=== PATIENT | female | born 1945 | race Caucasian/White ===

== ENCOUNTER → 2017-03-19 | Outpatient (CLI) | payer MEDICARE ==
--- NOTE | 2017-03-19 15:32 | US ---
EXAMINATION TYPE: US kidneys/renal and bladder DATE OF EXAM: 03/19/2017 COMPARISON: NONE CLINICAL HISTORY: 585.3 CKD STAGE 3. Hx of IBS, and diabetes EXAM MEASUREMENTS: Right Kidney: 10.2 x 5.8 x 4.5 cm Left Kidney: 10.2 x 5.3 x 4.9 cm Post Void Residual Volume: 5.6 mL Right Kidney: mild hydronephrosis Left Kidney: No hydronephrosis or masses seen Bladder: wnl Bilateral Jets seen: Yes Normal Post Void Residual: Yes There is an extrarenal pelvis on the right. IMPRESSION: NORMAL RENAL ULTRASOUND.
== END | disposition home or self-care (01) ==
LOC: RADUSWWP 14:49
PROVIDERS: ATTEND Internal Medicine
DX: N18.3 Chronic kidney disease, stage 3 (moderate) (principal)
CPT/HCPCS: 76770

== ENCOUNTER 2017-12-11 01:57 | Emergency (ER) | payer MEDICARE ==
[2017-12-11 02:04] VITALS: RESP 18
[2017-12-11] MEDS ORDERED: SODIUM CHLORIDE 0.9% 500 ML IV STA (02:53)
--- NOTE | 2017-12-11 03:05 | ED ---
Fall HPI - General Chief Complaint: Fall Stated Complaint: FALL Time Seen by Provider: 12/11/17 02:46 Source: patient, RN notes reviewed Mode of arrival: wheelchair Limitations: no limitations - History of Present Illness Initial Comments: 72-year-old female presents emergency Department chief complaint of a fall. She states she's had 2 or 3 episodes today where she does feel like she loses her balance and she will follow her. He also complains her ring years of been ringing. She states that she just laid down or sleep states that she had a get up to go to the bathroom states that she was in the hallway and subtly just collapsed. She is not exactly sure what happened. She felt that she fell forward though she has an area of swelling on her occipital region she complains of mild headache she does take aspirin. She denies any neck pain, back pain just went of right rib and chest discomfort. She also feels some tightness in her chest. Patient also states she has right knee pain. She believes she fell on her right knee and she's had a history of patellar fracture. Patient denies being sick recently denies any nausea vomiting. She states that she does have use a cane because occasionally she uses loses her balance but this is felt different. - Related Data Home Medications Medication Instructions Recorded Confirmed Aspirin 325 mg PO DAILY 10/21/15 02/20/16 Atenolol [Tenormin] 25 mg PO DAILY 10/21/15 02/20/16 Atorvastatin Calcium [Lipitor] 20 mg PO DAILY 10/21/15 02/20/16 Benazepril HCl 10 mg PO DAILY 10/21/15 02/20/16 Biotin 7,500 mcg PO DAILY 10/21/15 02/20/16 Furosemide [Lasix] 20 mg PO DAILY 10/21/15 02/20/16 Liraglutide [Victoza 3-Kenji] 1.8 mg SQ DAILY 10/21/15 02/20/16 Zinc 50 mg PO DAILY 10/21/15 02/20/16 metFORMIN HCL [Glucophage Xr] 500 mg PO BID 10/21/15 02/20/16 Ascorbic Acid [Vitamin C] 600 mg PO DAILY 02/18/16 02/20/16 Biotin 7,500 mcg PO 02/18/16 02/20/16 Cholecalciferol [Vitamin D3] 400 unit PO DAILY@1200 02/18/16 02/20/16 Multivitamins, Thera [Multivitamin] 1 tab PO DAILY 02/18/16 02/20/16 Spironolactone [Aldactone] 25 mg PO DAILY 02/18/16 02/20/16 Tolterodine Tartrate [Detrol LA] 4 mg PO DAILY 02/18/16 02/20/16 Vitamin B Complex 1 each PO 02/18/16 02/20/16 Vitamin E (Dl,Tocopheryl Acet) 400 unit PO DAILY 02/18/16 02/20/16 [Vitamin E] metroNIDAZOLE 1% GEL [Metrogel 1%] 1 applic TOPICAL DAILY 02/18/16 02/20/16 Previous Rx's Medication Instructions Recorded Cephalexin [Keflex] 500 mg PO Q8HR #12 cap 02/18/16 Allergies Allergy/AdvReac Type Severity Reaction Status Date / Time clindamycin Allergy Diarrhea Verified 12/11/17 02:04 morphine Allergy Rash/Hives Verified 12/11/17 02:04 Penicillins Allergy Rash/Hives Verified 12/11/17 02:04 Sulfa (Sulfonamide Allergy Rash/Hives Verified 12/11/17 02:04 Antibiotics) Review of Systems ROS Statement: Those systems with pertinent positive or pertinent negative responses have been documented in the HPI. ROS Other: All systems not noted in ROS Statement are negative. Past Medical History Past Medical History: Diabetes Mellitus, Hyperlipidemia, Mitral Valve Prolapse ( MVP) Additional Past Medical History / Comment(s): vertigo, tachycardia, MVP, high cholesterol, cataracts, gall stones History of Any Multi-Drug Resistant Organisms: None Reported Past Surgical History: Appendectomy, Hysterectomy Additional Past Surgical History / Comment(s): r breast biopsy, colonoscopy, cataracts, D&C, Past Psychological History: No Psychological Hx Reported Smoking Status: Former smoker Past Alcohol Use History: None Reported Past Drug Use History: None Reported General Exam Limitations: no limitations General appearance: alert, in no apparent distress Head exam: Present: normocephalic. Absent: atraumatic, normal inspection ( Hematoma noted occipital region) Eye exam: Present: normal appearance, PERRL, EOMI. Absent: scleral icterus, conjunctival injection, periorbital swelling ENT exam: Present: normal exam, normal oropharynx, mucous membranes moist Neck exam: Present: normal inspection, full ROM. Absent: tenderness, meningismus, lymphadenopathy Respiratory exam: Present: normal lung sounds bilaterally, chest wall tenderness (Right side anterior lateral ribs). Absent: respiratory distress, wheezes, rales, rhonchi, stridor Cardiovascular Exam: Present: regular rate, normal rhythm, normal heart sounds. Absent: systolic murmur, diastolic murmur, rubs, gallop, clicks GI/Abdominal exam: Present: soft, normal bowel sounds. Absent: distended, tenderness, guarding, rebound, rigid Extremities exam: Present: other (Right knee full range of motion mild tenderness with palpation neurovascular intact remaining extremity exam within normal limits) Back exam: Absent: CVA tenderness (R), CVA tenderness (L) Neurological exam: Present: alert, oriented X3, CN II-XII intact, reflexes normal. Absent: motor sensory deficit Skin exam: Present: warm, dry, intact, normal color. Absent: rash Course Vital Signs 12/11/17 02:00 Temperature 97.6 F Pulse Rate 72 Respiratory 18 Rate Blood Pressure 129/60 O2 Sat by Pulse 99 Oximetry Medical Decision Making - Medical Decision Making 72-year-old female presented emergency department for fall, rib pain head injury. CT reviewed no acute abnormality x-rays reviewed and no acute abnormality. Patient is a dehydrated she was given some fluids here in emergency department. Patient will be discharged at this time. This does not seem to be a syncopal episode and no cardiac event at this time. Case discussed with Dr. Perdomo. - Lab Data Result diagrams: 12/11/17 02:41 12/11/17 02:41 Lab Results 12/11/17 12/11/17 12/11/17 Range/Units 02:41 02:41 02:41 WBC 5.9 (3.8-10.6) k/uL RBC 3.78 L (3.80-5.40) m/uL Hgb 11.0 L (11.4-16.0) gm/dL Hct 33.3 L (34.0-46.0) % MCV 88.3 (80.0-100.0) fL MCH 29.1 (25.0-35.0) pg MCHC 32.9 (31.0-37.0) g/dL RDW 13.2 (11.5-15.5) % Plt Count 217 (150-450) k/uL Neutrophils % 42 % Lymphocytes % 43 % Monocytes % 7 % Eosinophils % 4 % Basophils % 1 % Neutrophils # 2.5 (1.3-7.7) k/uL Lymphocytes # 2.5 (1.0-4.8) k/uL Monocytes # 0.4 (0-1.0) k/uL Eosinophils # 0.2 (0-0.7) k/uL Basophils # 0.0 (0-0.2) k/uL Sodium 139 (137-145) mmol/L Potassium 4.3 (3.5-5.1) mmol/L Chloride 100 (98-107) mmol/L Carbon Dioxide 27 (22-30) mmol/L Anion Gap 12 mmol/L BUN 34 H (7-17) mg/dL Creatinine 1.40 H (0.52-1.04) mg/dL Est GFR (CKD-EPI)AfAm 43 (>60 ml/min/1.73 sqM) Est GFR (CKD-EPI)NonAf 37 (>60 ml/min/1.73 sqM) Glucose 96 (74-99) mg/dL Calcium 10.1 (8.4-10.2) mg/dL Total Bilirubin 0.2 (0.2-1.3) mg/dL AST 29 (14-36) U/L ALT 29 (9-52) U/L Alkaline Phosphatase 64 (38-126) U/L Troponin I <0.012 (0.000-0.034) ng/mL Total Protein 6.0 L (6.3-8.2) g/dL Albumin 3.8 (3.5-5.0) g/dL - EKG Data EKG Comments: EKG performed at 2:10 normal sinus rhythm with a left bundle rate 66 ID 148 QRS 140 QT/QTC 422/442 Disposition Clinical Impression: Fall, Rib contusion, Head injury, Knee contusion, Mild dehydration Disposition: HOME SELF-CARE Condition: Stable Instructions: Head Injury (ED) Additional Instructions: Please return to the Emergency Department if symptoms worsen or any other concerns. Referrals: Kedar Smith MD [Primary Care Provider] - 1-2 days Time of Disposition: 03:54
[2017-12-11 03:06] LABS: Basophils % (A) 1 %; Eosinophils # (A) 0.2 k/uL (0-0.7); Eosinophils % (A) 4 %; HCT 33.3 % (34.0-46.0); Lymphocytes # (A) 2.5 k/uL (1.0-4.8); Lymphocytes % (A) 43 %; MCH 29.1 pg (25.0-35.0); MCHC 32.9 g/dL (31.0-37.0); MCV 88.3 fL (80.0-100.0); Mean Platelet Volume 6.7; Monocytes # (A) 0.4 k/uL (0-1.0); Monocytes % (A) 7 %; Neutrophils # (A) 2.5 k/uL (1.3-7.7); Neutrophils % (A) 42 %; Platelet Count 217 k/uL (150-450); RBC 3.78 m/uL (3.80-5.40); RDW 13.2 % (11.5-15.5); WBC 5.9 k/uL (3.8-10.6)
[2017-12-11 03:14] LABS: Albumin 3.8 g/dL (3.5-5.0); Calcium 10.1 mg/dL (8.4-10.2); Potassium 4.3 mmol/L (3.5-5.1); Total Bilirubin 0.2 mg/dL (0.2-1.3)
--- NOTE | 2017-12-11 03:26 | XR ---
EXAMINATION TYPE: XR ribs RT w pa chest xray DATE OF EXAM: 12/11/2017 COMPARISON: Chest x-ray 08/11/2013 HISTORY: Fall. Pain. TECHNIQUE: 4 views FINDINGS: Heart and mediastinum are normal. The lungs are clear of infiltrate. There is no sign of a pleural effusion or pneumothorax. The right ribs appear intact. There are calcified gallstones. IMPRESSION: Normal chest. Normal right ribs. No fracture. Multiple gallstones.
--- NOTE | 2017-12-11 03:28 | XR ---
EXAMINATION TYPE: XR knee complete RT DATE OF EXAM: 12/11/2017 COMPARISON: 10/21/2015 HISTORY: Fall. Knee pain. TECHNIQUE: 3 views FINDINGS: I see no fracture nor dislocation. There is minor spurring on the patella. There is no sign of a joint effusion. Joint spaces are fairly normal. IMPRESSION: No acute abnormality of the right knee. No change.
--- NOTE | 2017-12-11 03:32 | CT ---
EXAMINATION TYPE: CT brain tim lockwood con DATE OF EXAM: 12/11/2017 COMPARISON: Head CT scan 08/11/2013. HISTORY: fall, dizziness CT DLP: 1345.40 mGycm Automated exposure control for dose reduction was used. TECHNIQUE: CT scan of the head and cervical spine are performed without contrast. FINDINGS: There is mild cerebral cortical atrophy. There is no mass effect nor midline shift. There is no sign of intracranial hemorrhage. The calvarium is intact. Vertebra have normal alignment. There is some narrowing at the C6-7 disc space with spur formation. P osterior elements appear intact. There is multilevel hypertrophic facet arthropathy. The skull base i s intact. IMPRESSION: Mild cerebral atrophy. No acute intracranial abnormality. No change. Mild spondylosis in the lower cervical spine. No fracture.
[2017-12-11 04:08] VITALS: BP 135/69; PULSE 67; TEMP 97.4
[2017-12-11 04:20] LABS: Appearance,Urine Clear (Clear); Bilirubin,Urine Negative (Negative); Blood,Urine Negative (Negative); Color,Urine Light Yellow; Glucose,Urine (UA) Negative (Negative); Hyaline Casts,Urine 3 /lpf (0-2); Ketones,Urine Negative (Negative); Leukocyte Esterase,Urine Small (Negative); Mucus,Urine Rare /hpf; Nitrite,Urine Negative (Negative); PH, Urine 6.5 (5.0-8.0); Protein,Urine Negative (Negative); RBC,Urine <1 /hpf (0-5); Specific Gravity,Urine 1.005 (1.001-1.035); Squamous Epithelial Cell,Urine <1 /hpf (0-4); Urobilinogen,Urine <2.0 mg/dL (<2.0); WBC,Urine 2 /hpf (0-5)
== END 2017-12-11 04:07 | disposition home or self-care (01) ==
LOC: EC 01:57
DX: S20.211A Contusion of right front wall of thorax, initial encounter (principal); S80.01XA Contusion of right knee, initial encounter; S00.03XA Contusion of scalp, initial encounter; E86.0 Dehydration; E11.9 Type 2 diabetes mellitus without complications; E78.5 Hyperlipidemia, unspecified; E78.00 Pure hypercholesterolemia, unspecified; I34.1 Nonrheumatic mitral (valve) prolapse; Z87.891 Personal history of nicotine dependence; Z79.82 Long term (current) use of aspirin; Z79.84 Long term (current) use of oral hypoglycemic drugs; Z79.899 Other long term (current) drug therapy; Z88.1 Allergy status to other antibiotic agents; Z88.5 Allergy status to narcotic agent; Z88.0 Allergy status to penicillin; Z88.2 Allergy status to sulfonamides; W19.XXXA Unspecified fall, initial encounter; Y92.89 Other specified places as the place of occurrence of the external cause
CPT/HCPCS: 36415; 70450; 72125; 80053; 81001; 84484; 85025; 93005; 96360; 99284

== ENCOUNTER → 2019-06-04 | Outpatient (CLI) | payer MEDICARE ==
--- NOTE | 2019-06-04 14:52 | US ---
EXAMINATION TYPE: US kidneys/renal and bladder DATE OF EXAM: 06/04/2019 COMPARISON: 03/19/2017 CLINICAL HISTORY: N18.4 RENAL DISEASE. No pain EXAM MEASUREMENTS: Right Kidney: 9.2 x 3.5 x 4.4 cm Left Kidney: 9.0 x 3.3 x 4.7 cm Right Kidney: Cortical thinning. Extrarenal pelvis is noted. Left Kidney: No hydronephrosis or masses seen Bladder: distended, wnl Bilateral Jets seen There is no evidence for hydronephrosis at this point in time. No nephrolithiasis is seen. No melchor s are identified. The urinary bladder is anechoic. Bilateral ureteral jets are seen. IMPRESSION: Mild right-sided cortical thinning, sequela of chronic medical renal disease. No hydronep hrosis of either kidney.
== END | disposition home or self-care (01) ==
LOC: RADUSWWP 13:46
PROVIDERS: ATTEND Internal Medicine
DX: N28.89 Other specified disorders of kidney and ureter (principal)
CPT/HCPCS: 76770

== ENCOUNTER → 2021-08-15 | Outpatient (CLI) | payer MEDICARE ==
--- NOTE | 2021-08-15 09:45 | US ---
EXAMINATION TYPE: US abdomen complete DATE OF EXAM: 08/15/2021 COMPARISON: US kidney 06/04/19 CLINICAL HISTORY: 75-year-old female R74.8 Elevated liver enzymes. EXAM MEASUREMENTS: Liver Length: 14.7 cm Gallbladder Wall: 0.2 cm CBD: 0.3 cm Spleen: 8.1 cm Right Kidney: 10.1 x 4.5 x 4.4 cm Left Kidney: 9.8 x 4.1 x 4.1 cm Pancreas: Tail obscured by overlying bowel gas Liver: Partially Obscured by overlying bowel gas. Visualized portions show no gross abnormality. Gallbladder: At least three 2.0 cm gallstones. No abnormal distention, wall thickening, or surroundi ng fluid. Evidence for sonographic Elena's sign: Yes CBD: Partially Obscured by overlying bowel gas Spleen: wnl Right Kidney: No hydronephrosis or masses seen Left Kidney: No hydronephrosis or masses seen Upper IVC: wnl Abd Aorta: wnl IMPRESSION: 1. Cholelithiasis with 3 gallstones measuring up to 2.0 cm. Note that sonographic Elena sign is repo rted positive. This could reflect referred pain. If concern for early acute cholecystitis or chronic cholecystitis, HIDA scan can be performed. There are no ancillary imaging findings to further support acute cholecystitis by ultrasound at this time. 2. No biliary ductal dilatation.
== END | disposition home or self-care (01) ==
LOC: RADUSWWP 07:01
PROVIDERS: ATTEND Internal Medicine
DX: Z12.31 Encounter for screening mammogram for malignant neoplasm of breast (principal); K80.80 Other cholelithiasis without obstruction; K80.20 Calculus of gallbladder without cholecystitis without obstruction
CPT/HCPCS: 76700

== ENCOUNTER 2021-09-01 09:42 | Emergency (ER) | payer MEDICARE ==
[2021-09-01] MEDS ORDERED: SODIUM CHLORIDE 0.9% 1,000 ML IV STA (10:12)
[2021-09-01] MEDS ORDERED: SODIUM CHLORIDE 0.9% 500 ML 500 ML IV STA (10:40)
--- NOTE | 2021-09-01 10:42 | ED ---
General Adult HPI - General Chief complaint: Weakness Stated complaint: covid+, cough Time Seen by Provider: 09/01/21 10:10 Source: family, RN notes reviewed Mode of arrival: wheelchair Limitations: no limitations - History of Present Illness Initial comments: Patient is a pleasant 75-year-old female presenting to the emergency Department with family concerns for dehydration. Patient with diagnosed with COVID-19 infection 11 days ago. Patient has had decreased appetite. Patient has had some diarrhea. No vomiting. Patient does have cough. No dyspnea. Patient has been fatigued. Patient is able to use the restroom on her own with some difficu lty. Majority of history comes from family. - Related Data Home Medications Medication Instructions Recorded Confirmed Aspirin 325 mg PO DAILY 10/21/15 02/20/16 Atorvastatin Calcium [Lipitor] 20 mg PO DAILY 10/21/15 02/20/16 Benazepril HCl 10 mg PO DAILY 10/21/15 02/20/16 Biotin 7,500 mcg PO DAILY 10/21/15 02/20/16 Furosemide [Lasix] 20 mg PO DAILY 10/21/15 02/20/16 Liraglutide [Victoza 3-Kenji] 1.8 mg SQ DAILY 10/21/15 02/20/16 Zinc 50 mg PO DAILY 10/21/15 02/20/16 atenoloL [Tenormin] 25 mg PO DAILY 10/21/15 02/20/16 metFORMIN HCL [Glucophage Xr] 500 mg PO BID 10/21/15 02/20/16 Ascorbic Acid [Vitamin C] 600 mg PO DAILY 02/18/16 02/20/16 Biotin 7,500 mcg PO 02/18/16 02/20/16 Cholecalciferol [Vitamin D3] 400 unit PO DAILY@1200 02/18/16 02/20/16 Multivitamins, Thera [Multivitamin] 1 tab PO DAILY 02/18/16 02/20/16 Spironolactone [Aldactone] 25 mg PO DAILY 02/18/16 02/20/16 Tolterodine Tartrate [Detrol LA] 4 mg PO DAILY 02/18/16 02/20/16 Vitamin B Complex 1 each PO 02/18/16 02/20/16 Vitamin E (Dl,Tocopheryl Acet) 400 unit PO DAILY 02/18/16 02/20/16 [Vitamin E] metroNIDAZOLE 1% GEL [Metrogel 1%] 1 applic TOPICAL DAILY 02/18/16 02/20/16 Previous Rx's Medication Instructions Recorded Cephalexin [Keflex] 500 mg PO Q8HR #12 cap 02/18/16 Allergies Allergy/AdvReac Type Severity Reaction Status Date / Time clindamycin Allergy Diarrhea Verified 09/01/21 09:55 morphine Allergy Rash/Hives Verified 09/01/21 09:55 Penicillins Allergy Rash/Hives Verified 09/01/21 09:55 Sulfa (Sulfonamide Allergy Rash/Hives Verified 09/01/21 09:55 Antibiotics) Review of Systems ROS Statement: Those systems with pertinent positive or pertinent negative responses have been documented in the HPI. ROS Other: All systems not noted in ROS Statement are negative. Constitutional: Denies: fever Eyes: Denies: eye pain ENT: Denies: ear pain Respiratory: Reports: cough. Denies: dyspnea Cardiovascular: Denies: chest pain Endocrine: Reports: fatigue Gastrointestinal: Reports: diarrhea. Denies: abdominal pain, vomiting Genitourinary: Denies: dysuria Musculoskeletal: Denies: back pain Skin: Denies: rash Neurological: Denies: headache Past Medical History Past Medical History: Dementia, Diabetes Mellitus, Hyperlipidemia, Mitral Valve Prolapse (MVP) Additional Past Medical History / Comment(s): vertigo, tachycardia, MVP, high cholesterol, cataracts, gall stones History of Any Multi-Drug Resistant Organisms: None Reported Past Surgical History: Appendectomy, Hysterectomy Additional Past Surgical History / Comment(s): r breast biopsy, colonoscopy, cataracts, D&C, Past Psychological History: No Psychological Hx Reported Smoking Status: Former smoker Past Alcohol Use History: None Reported Past Drug Use History: None Reported General Exam Limitations: no limitations General appearance: alert, in no apparent distress Head exam: Present: normocephalic Eye exam: Present: normal appearance Neck exam: Present: normal inspection Respiratory exam: Present: normal lung sounds bilaterally Cardiovascular Exam: Present: regular rate, normal rhythm GI/Abdominal exam: Present: soft. Absent: tenderness Extremities exam: Present: normal inspection Neurological exam: Present: alert Psychiatric exam: Present: flat affect Skin exam: Present: normal color Course Vital Signs 09/01/21 09/01/21 09/01/21 09:50 10:35 12:24 Temperature 97.7 F Pulse Rate 98 92 Respiratory 18 18 Rate Blood Pressure 80/55 108/71 121/72 O2 Sat by Pulse 95 98 Oximetry EKG Findings - EKG Comments: EKG Findings:: Normal sinus rhythm with a rate of 144. QRS 124. QT 398. QTC 505. Left axis. Left bundle branch block. No acute ST change. Medical Decision Making - Medical Decision Making Patient reevaluated and resting comfortably in bed feeling better with fluids. Patient has had 4 blood pressures over 105, last was 125. - Lab Data Result diagrams: 09/01/21 10:33 09/01/21 10:33 Lab Results 09/01/21 09/01/21 09/01/21 Range/Units 10:33 10:33 10:33 WBC 5.7 (3.8-10.6) k/uL RBC 4.17 (3.80-5.40) m/uL Hgb 12.9 (11.4-16.0) gm/dL Hct 38.4 (34.0-46.0) % MCV 92.0 (80.0-100.0) fL MCH 30.9 (25.0-35.0) pg MCHC 33.6 (31.0-37.0) g/dL RDW 12.6 (11.5-15.5) % Plt Count 217 (150-450) k/uL MPV 7.9 Neutrophils % 70 % Lymphocytes % 20 % Monocytes % 7 % Eosinophils % 1 % Basophils % 1 % Neutrophils # 4.0 (1.3-7.7) k/uL Lymphocytes # 1.2 (1.0-4.8) k/uL Monocytes # 0.4 (0-1.0) k/uL Eosinophils # 0.1 (0-0.7) k/uL Basophils # 0.0 (0-0.2) k/uL Sodium 136 L (137-145) mmol/L Potassium 4.6 (3.5-5.1) mmol/L Chloride 101 (98-107) mmol/L Carbon Dioxide 20 L (22-30) mmol/L Anion Gap 15 mmol/L BUN 28 H (7-17) mg/dL Creatinine 1.34 H (0.52-1.04) mg/dL Est GFR (CKD-EPI)AfAm 44 (>60 ml/min/1.73 sqM) Est GFR (CKD-EPI)NonAf 38 (>60 ml/min/1.73 sqM) Glucose 133 H (74-99) mg/dL Plasma Lactic Acid Terrence (0.7-2.0) mmol/L Calcium 8.8 (8.4-10.2) mg/dL Magnesium 2.5 H (1.6-2.3) mg/dL Total Bilirubin 0.7 (0.2-1.3) mg/dL AST 40 H (14-36) U/L ALT 19 (4-34) U/L Alkaline Phosphatase 133 H (38-126) U/L Lactate Dehydrogenase 851 H (313-618) U/L C-Reactive Protein 6.8 H (<1.0) mg/dL Total Protein 6.7 (6.3-8.2) g/dL Albumin 3.6 (3.5-5.0) g/dL Urine Color Yellow Urine Appearance Clear (Clear) Urine pH 5.0 (5.0-8.0) Ur Specific [place] 1.018 (1.001-1.035) Urine Protein Negative (Negative) Urine Glucose (UA) Negative (Negative) Urine Ketones Trace H (Negative) Urine Blood Negative (Negative) Urine Nitrite Negative (Negative) Urine Bilirubin Negative (Negative) Urine Urobilinogen <2.0 (<2.0) mg/dL Ur Leukocyte Esterase Negative (Negative) 09/01/21 Range/Units 11:58 WBC (3.8-10.6) k/uL RBC (3.80-5.40) m/uL Hgb (11.4-16.0) gm/dL Hct (34.0-46.0) % MCV (80.0-100.0) fL MCH (25.0-35.0) pg MCHC (31.0-37.0) g/dL RDW (11.5-15.5) % Plt Count (150-450) k/uL MPV Neutrophils % % Lymphocytes % % Monocytes % % Eosinophils % % Basophils % % Neutrophils # (1.3-7.7) k/uL Lymphocytes # (1.0-4.8) k/uL Monocytes # (0-1.0) k/uL Eosinophils # (0-0.7) k/uL Basophils # (0-0.2) k/uL Sodium (137-145) mmol/L Potassium (3.5-5.1) mmol/L Chloride (98-107) mmol/L Carbon Dioxide (22-30) mmol/L Anion Gap mmol/L BUN (7-17) mg/dL Creatinine (0.52-1.04) mg/dL Est GFR (CKD-EPI)AfAm (>60 ml/min/1.73 sqM) Est GFR (CKD-EPI)NonAf (>60 ml/min/1.73 sqM) Glucose (74-99) mg/dL Plasma Lactic Acid Terrence 1.0 (0.7-2.0) mmol/L Calcium (8.4-10.2) mg/dL Magnesium (1.6-2.3) mg/dL Total Bilirubin (0.2-1.3) mg/dL AST (14-36) U/L ALT (4-34) U/L Alkaline Phosphatase (38-126) U/L Lactate Dehydrogenase (313-618) U/L C-Reactive Protein (<1.0) mg/dL Total Protein (6.3-8.2) g/dL Albumin (3.5-5.0) g/dL Urine Color Urine Appearance (Clear) Urine pH (5.0-8.0) Ur Specific [place] (1.001-1.035) Urine Protein (Negative) Urine Glucose (UA) (Negative) Urine Ketones (Negative) Urine Blood (Negative) Urine Nitrite (Negative) Urine Bilirubin (Negative) Urine Urobilinogen (<2.0) mg/dL Ur Leukocyte Esterase (Negative) - Radiology Data Radiology results: image reviewed (Chest x-ray shows COPD with. Hilar interstitial changes) Disposition Clinical Impression: Dehydration, COVID-19 Disposition: HOME SELF-CARE Condition: Stable Instructions (If sedation given, give patient instructions): Dehydration (ED), Acute Diarrhea (ED), Coronavirus Disease 2019 (COVID-19) Additional Instructions: Please follow-up with primary care physician in the next day or 2 for recheck. Return for difficulty breathing, not tolerating fluids, worries for dehydration, low blood pressure, worsening symptoms or any other concerns. Continue to encourage fluids. Is patient prescribed a controlled substance at d/c from ED?: No Referrals: Anthony Joshi MD [Primary Care Provider] - 1-2 days Time of Disposition: 12:38
[2021-09-01 11:13] LABS: Appearance,Urine Clear (Clear); Bilirubin,Urine Negative (Negative); Blood,Urine Negative (Negative); Color,Urine Yellow; Glucose,Urine (UA) Negative (Negative); Ketones,Urine Trace (Negative); Leukocyte Esterase,Urine Negative (Negative); Nitrite,Urine Negative (Negative); Protein,Urine Negative (Negative); Specific Gravity,Urine 1.018 (1.001-1.035); Urobilinogen,Urine <2.0 mg/dL (<2.0)
--- NOTE | 2021-09-01 11:18 | XR ---
EXAMINATION TYPE: XR chest 1V portable DATE OF EXAM: 09/01/2021 COMPARISON: 12/11/2017 HISTORY: Cough TECHNIQUE: Single frontal view of the chest is obtained. FINDINGS: Heart size normal nurse perihilar interstitial infiltrates. No pleural effusion or pneumot horax. Heart size normal. Atherosclerotic change aorta. Hyperinflation suggests COPD. Arthropathy of the shoulders. Hypertrophic and degenerative change of the spine. IMPRESSION: 1. COPD with perihilar interstitial infiltrates.
[2021-09-01 11:23] LABS: Albumin 3.6 g/dL (3.5-5.0); C Reactive Protein 6.8 mg/dL (<1.0); Calcium 8.8 mg/dL (8.4-10.2); Magnesium 2.5 mg/dL (1.6-2.3); Potassium 4.6 mmol/L (3.5-5.1); Total Bilirubin 0.7 mg/dL (0.2-1.3); Total Protein 6.7 g/dL (6.3-8.2)
[2021-09-01 11:34] LABS: Basophils % (A) 1 %; Eosinophils # (A) 0.1 k/uL (0-0.7); Eosinophils % (A) 1 %; HCT 38.4 % (34.0-46.0); HGB 12.9 gm/dL (11.4-16.0); Lymphocytes # (A) 1.2 k/uL (1.0-4.8); Lymphocytes % (A) 20 %; MCH 30.9 pg (25.0-35.0); MCHC 33.6 g/dL (31.0-37.0); Mean Platelet Volume 7.9; Monocytes # (A) 0.4 k/uL (0-1.0); Monocytes % (A) 7 %; Neutrophils % (A) 70 %; Platelet Count 217 k/uL (150-450); RBC 4.17 m/uL (3.80-5.40); RDW 12.6 % (11.5-15.5); WBC 5.7 k/uL (3.8-10.6)
[2021-09-01 12:50] LABS: INR 1.2 (<1.2); Partial Thromboplastin Time 22.6 sec (22.0-30.0); Prothrombin Time 12.2 sec (9.0-12.0)
[2021-09-01 13:41] VITALS: BP 117/59; PULSE 100; RESP 20; TEMP 98
== END 2021-09-01 13:35 | disposition home or self-care (01) ==
LOC: EC 09:42
DX: U07.1 COVID-19 (principal); E86.0 Dehydration; E11.9 Type 2 diabetes mellitus without complications; E78.5 Hyperlipidemia, unspecified; Z87.891 Personal history of nicotine dependence; Z88.1 Allergy status to other antibiotic agents; Z88.5 Allergy status to narcotic agent; Z88.0 Allergy status to penicillin; Z88.2 Allergy status to sulfonamides; Z79.82 Long term (current) use of aspirin; Z79.899 Other long term (current) drug therapy; Z79.84 Long term (current) use of oral hypoglycemic drugs
CPT/HCPCS: 36415; 71045; 80053; 81003; 82728; 83605; 83615; 83735; 84145; 85025; 85610; 85730; 86140; 93005; 96360; 96361; 99285

== ENCOUNTER → 2021-11-01 | Outpatient (CLI) | payer MEDICARE ==
--- NOTE | 2021-11-01 10:55 | BD ---
EXAMINATION TYPE: Axial Bone Density DATE OF EXAM: 11/01/2021 COMPARISON: 11/18/2009 CLINICAL HISTORY: Height: 61 IN Weight: 149 LBS FRAX RISK QUESTIONS: Family History (Parent hip fracture): YES FATHER History of Fracture in Adulthood: YES RT PATELLA 2016 Secondary Osteoporosis: 3. Menopause before 45: PARTIAL HYST AGE 29 RISK FACTORS HISTORY OF: History of Wrist Fracture: YES LT WRIST 2000 Surgery to Wrist (left): LT WRIST 2000 Active: YES Diet low in dairy products/other sources of calcium: YES Postmenopausal woman: PARTIAL HYST AGE 29 Take estrogen and/or progesterone medications: NOT NOW How long: TOOK CONTROL FOR APPROX 5 YEARS MEDICATIONS: Additional Medications: VIT D, VICTOZA, BENAZEPRIL, ASPIRIN, FUROSEMIDE, ZINC, MYRBETRIQ, VIT C, ATOR VASTATIN, SODIUM BICARBATE,ATENOLOL, EXAM MEASUREMENTS: Bone mineral densitometry was performed using the [facility]. Bone mineral density as measured about the Lumbar spine is: ----- L1-L4(G/cm2): 1.268 T Score Values are as follows: ----- L2: -0.4 ----- L3: 2.1 ----- L4: 1.3 ----- L1-L4: 0.7 Bone mineral density has: Increased 3.1% since study of: 11/18/2009 Bone mineral density about the R hip (g/cm2): 0.718 Bone mineral density about the L hip (g/cm2): 0.689 T Score values are as follows: -----R Neck: -2.3 -----L Neck: -2.5 -----R Total: -1.3 -----L Total: -1.6 Bone mineral density has: Decreased -18.4% since study of: 11/18/2009 IMPRESSION: Osteopenia NOTE: T-SCORE=SD OF THE YOUNG ADULT MEAN.
--- NOTE | 2021-11-01 11:26 | MM ---
Reason for exam: screening (asymptomatic). Last mammogram was performed 18 years and 3 months ago. History: Patient is postmenopausal and history of endometrial cancer. Benign excisional biopsy of the right breast, June 17, 1998. Benign stereotactic core biopsy of the right breast, May 18, 1998. Physical Findings: A clinical breast exam by your physician is recommended on an annual basis and results should be correlated with mammographic findings. MG 3D Screening Mammo W/Cad Bilateral CC and MLO view(s) were taken. No prior studies available for comparison. The breast tissue is heterogeneously dense. This may lower the sensitivity of mammography. There is no discrete abnormality. No significant changes when compared with prior studies. ASSESSMENT: Negative, BI-RAD 1 RECOMMENDATION: Routine screening mammogram of both breasts in 1 year.
== END | disposition home or self-care (01) ==
LOC: RADBDWWP 08:07
PROVIDERS: ATTEND Internal Medicine
DX: Z12.31 Encounter for screening mammogram for malignant neoplasm of breast (principal); M89.9 Disorder of bone, unspecified; M85.80 Other specified disorders of bone density and structure, unspecified site
CPT/HCPCS: 77063; 77067; 77080

== ENCOUNTER 2022-03-24 19:20 | Inpatient (IN) | payer MEDICARE ==
--- NOTE | 2022-03-24 20:03 | ED ---
General Adult HPI - General Chief complaint: Chest Pain Stated complaint: Chest pain,High BP Time Seen by Provider: 03/24/22 20:03 Source: patient, family Mode of arrival: ambulatory Limitations: no limitations - History of Present Illness Initial comments: Patient presents to the ED with her daughter for evaluation. Per daughter, the patient reported having chest pain to her at about 3 PM today, and she reports that the patient's chest pain resolved at about 6 PM today. Patient states that she has not had any chest pain since then. Patient does not recall exactly where her chest pain was, but she states that it was bilateral. Patient denies having any other symptoms or complaints. Patient denies trauma or injury, fever or chills, headache, focal numbness/weakness/neuro deficit, neck/arm/jaw/back pain, pleuritic pain, cough or cold symptoms, dyspnea, palpitations, nausea/vomiting/diaphoresis, abdominal pain, diarrhea, bloody or melanotic stool, dysuria or urinary symptoms, leg or calf swelling or pain, or any other symptoms or complaints. Patient states that she feels completely fine currently. Patient's daughter states that the patient's blood pressure readings have also been elevated today. - Related Data Home Medications Medication Instructions Recorded Confirmed Aspirin 325 mg PO DAILY 10/21/15 02/20/16 Atorvastatin Calcium [Lipitor] 20 mg PO DAILY 10/21/15 02/20/16 Benazepril HCl 10 mg PO DAILY 10/21/15 02/20/16 Biotin 7,500 mcg PO DAILY 10/21/15 02/20/16 Furosemide [Lasix] 20 mg PO DAILY 10/21/15 02/20/16 Liraglutide [Victoza 3-Kenji] 1.8 mg SQ DAILY 10/21/15 02/20/16 Zinc 50 mg PO DAILY 10/21/15 02/20/16 atenoloL [Tenormin] 25 mg PO DAILY 10/21/15 02/20/16 metFORMIN HCL [Glucophage Xr] 500 mg PO BID 10/21/15 02/20/16 Ascorbic Acid [Vitamin C] 600 mg PO DAILY 02/18/16 02/20/16 Biotin 7,500 mcg PO 02/18/16 02/20/16 Cholecalciferol [Vitamin D3] 400 unit PO DAILY@1200 02/18/16 02/20/16 Multivitamins, Thera [Multivitamin] 1 tab PO DAILY 02/18/16 02/20/16 Spironolactone [Aldactone] 25 mg PO DAILY 02/18/16 02/20/16 Tolterodine Tartrate [Detrol LA] 4 mg PO DAILY 02/18/16 02/20/16 Vitamin B Complex 1 each PO 02/18/16 02/20/16 Vitamin E (Dl,Tocopheryl Acet) 400 unit PO DAILY 02/18/16 02/20/16 [Vitamin E] metroNIDAZOLE 1% GEL [Metrogel 1%] 1 applic TOPICAL DAILY 02/18/16 02/20/16 Previous Rx's Medication Instructions Recorded Cephalexin [Keflex] 500 mg PO Q8HR #12 cap 02/18/16 Allergies Allergy/AdvReac Type Severity Reaction Status Date / Time clindamycin Allergy Diarrhea Verified 09/01/21 09:55 morphine Allergy Rash/Hives Verified 09/01/21 09:55 Penicillins Allergy Rash/Hives Verified 09/01/21 09:55 Sulfa (Sulfonamide Allergy Rash/Hives Verified 09/01/21 09:55 Antibiotics) Review of Systems ROS Statement: Those systems with pertinent positive or pertinent negative responses have been documented in the HPI. ROS Other: All systems not noted in ROS Statement are negative. Past Medical History Past Medical History: Dementia, Diabetes Mellitus, Hyperlipidemia, Mitral Valve Prolapse (MVP) Additional Past Medical History / Comment(s): vertigo, tachycardia, MVP, high cholesterol, cataracts, gall stones History of Any Multi-Drug Resistant Organisms: None Reported Past Surgical History: Appendectomy, Hysterectomy Additional Past Surgical History / Comment(s): r breast biopsy, colonoscopy, cataracts, D&C, Past Psychological History: No Psychological Hx Reported Smoking Status: Former smoker Past Alcohol Use History: None Reported Past Drug Use History: None Reported General Exam Limitations: no limitations General appearance: alert, in no apparent distress Head exam: Present: atraumatic, normocephalic Eye exam: Present: normal appearance, EOMI ENT exam: Present: mucous membranes moist Neck exam: Present: other (trachea is in midline) Respiratory exam: Present: normal lung sounds bilaterally. Absent: respiratory distress, wheezes, rales, rhonchi, stridor, chest wall tenderness Cardiovascular Exam: Present: regular rate, normal rhythm, normal heart sounds, other (Normal radial pulses bilaterally) GI/Abdominal exam: Present: soft. Absent: distended, tenderness, guarding Extremities exam: Present: other (Negative Homans sign bilaterally). Absent: tenderness, pedal edema, calf tenderness Neurological exam: Present: alert, oriented X3. Absent: motor sensory deficit Psychiatric exam: Present: normal affect, normal mood Skin exam: Present: warm, dry, intact, normal color Course Vital Signs 03/24/22 19:23 Temperature 98.2 F Pulse Rate 85 Respiratory 16 Rate Blood Pressure 160/81 O2 Sat by Pulse 98 Oximetry - Reevaluation(s) Reevaluation #1: 03/24/22 23:22 Patient continues to deny having any pain while in the ED. Patient's abdomen remains soft and nontender on examination. Patient and daughter are aware the patient's test results, and they both agree with hospital admission at this time. 03/24/22 23:25 Case, H&P, test results thus far and ED management thus far were discussed with Dr. Lux. He accepts hospital admission. He states that he will follow-up on the patient's next troponin level and start anticoagulation if trending upward. He will also follow up on the patient's gallbladder ultrasound report. He has no further recommendations at this time. EKG Findings - EKG Comments: EKG Findings:: Normal sinus rhythm, ventricular rate of 79 bpm, no ectopy, left bundle branch block, normal AR interval, QRS duration of 128 ms, normal QT interval, normal axis, no significant change when compared to 09/01/2021 EKG Medical Decision Making - Medical Decision Making Given the patient's borderline elevated aspirin and reported chest pain earlier today, will admit the patient to the hospital for serial troponins, cardiac monitoring and cardiology consultation. Patient was treated with oral aspirin in the ED. Given just a borderline elevation of her troponin, will hold off on anticoagulation at this time. Given the patient's mildly elevated LFTs, will also order a gallbladder ultrasound to be sure that it is not the etiology of her pain. Patient is noted to have mild hyperkalemia on laboratory evaluation. Patient was treated with oral Kayexalate in the ED. I have discussed the patient's case with Dr. Lux, and he has accepted hospital admission. Patient and daughter both agree with hospital admission at this time. - Lab Data Result diagrams: 03/24/22 20:49 03/24/22 22:00 Lab Results 03/24/22 03/24/22 03/24/22 Range/Units 20:49 20:49 20:49 WBC 6.9 (3.8-10.6) k/uL RBC 4.27 (3.80-5.40) m/uL Hgb 12.7 (11.4-16.0) gm/dL Hct 39.7 (34.0-46.0) % MCV 93.0 (80.0-100.0) fL MCH 29.8 (25.0-35.0) pg MCHC 32.0 (31.0-37.0) g/dL RDW 12.5 (11.5-15.5) % Plt Count 169 (150-450) k/uL MPV 7.6 Neutrophils % 60 % Lymphocytes % 27 % Monocytes % 6 % Eosinophils % 4 % Basophils % 0 % Neutrophils # 4.1 (1.3-7.7) k/uL Lymphocytes # 1.9 (1.0-4.8) k/uL Monocytes # 0.4 (0-1.0) k/uL Eosinophils # 0.3 (0-0.7) k/uL Basophils # 0.0 (0-0.2) k/uL PT 10.9 (9.0-12.0) sec INR 1.0 (<1.2) APTT 20.0 L (22.0-30.0) sec Sodium (137-145) mmol/L Potassium (3.5-5.1) mmol/L Chloride (98-107) mmol/L Carbon Dioxide (22-30) mmol/L Anion Gap mmol/L BUN (7-17) mg/dL Creatinine (0.52-1.04) mg/dL Est GFR (CKD-EPI)AfAm (>60 ml/min/1.73 sqM) Est GFR (CKD-EPI)NonAf (>60 ml/min/1.73 sqM) Glucose (74-99) mg/dL Calcium (8.4-10.2) mg/dL Magnesium (1.6-2.3) mg/dL Total Bilirubin (0.2-1.3) mg/dL AST (14-36) U/L ALT (4-34) U/L Alkaline Phosphatase (38-126) U/L Troponin I (0.000-0.034) ng/mL NT-Pro-B Natriuret Pep 181 pg/mL Total Protein (6.3-8.2) g/dL Albumin (3.5-5.0) g/dL Lipase (23-300) U/L 03/24/22 03/24/22 Range/Units 22:00 22:00 WBC (3.8-10.6) k/uL RBC (3.80-5.40) m/uL Hgb (11.4-16.0) gm/dL Hct (34.0-46.0) % MCV (80.0-100.0) fL MCH (25.0-35.0) pg MCHC (31.0-37.0) g/dL RDW (11.5-15.5) % Plt Count (150-450) k/uL MPV Neutrophils % % Lymphocytes % % Monocytes % % Eosinophils % % Basophils % % Neutrophils # (1.3-7.7) k/uL Lymphocytes # (1.0-4.8) k/uL Monocytes # (0-1.0) k/uL Eosinophils # (0-0.7) k/uL Basophils # (0-0.2) k/uL PT (9.0-12.0) sec INR (<1.2) APTT (22.0-30.0) sec Sodium 140 (137-145) mmol/L Potassium 5.6 H (3.5-5.1) mmol/L Chloride 108 H (98-107) mmol/L Carbon Dioxide 25 (22-30) mmol/L Anion Gap 7 mmol/L BUN 24 H (7-17) mg/dL Creatinine 1.18 H (0.52-1.04) mg/dL Est GFR (CKD-EPI)AfAm 51 (>60 ml/min/1.73 sqM) Est GFR (CKD-EPI)NonAf 44 (>60 ml/min/1.73 sqM) Glucose 127 H (74-99) mg/dL Calcium 10.0 (8.4-10.2) mg/dL Magnesium 2.0 (1.6-2.3) mg/dL Total Bilirubin 1.7 H (0.2-1.3) mg/dL AST 68 H (14-36) U/L ALT 27 (4-34) U/L Alkaline Phosphatase 84 (38-126) U/L Troponin I 0.042 H* (0.000-0.034) ng/mL NT-Pro-B Natriuret Pep pg/mL Total Protein 7.2 (6.3-8.2) g/dL Albumin 4.3 (3.5-5.0) g/dL Lipase 123 (23-300) U/L - Radiology Data Chest x-ray: No acute cardiopulmonary disease/process. Disposition Clinical Impression: Chest pain, Elevated troponin, Hyperkalemia Disposition: ADMITTED IP TO THIS HOSP Condition: Stable Is patient prescribed a controlled substance at d/c from ED?: No Referrals: Anthony Joshi MD [Primary Care Provider] - 1-2 days Time of Disposition: 23:25
[2022-03-24 20:49] LABS: Basophils % (A) 0 %; Eosinophils # (A) 0.3 k/uL (0-0.7); Eosinophils % (A) 4 %; HCT 39.7 % (34.0-46.0); HGB 12.7 gm/dL (11.4-16.0); Lymphocytes # (A) 1.9 k/uL (1.0-4.8); Lymphocytes % (A) 27 %; MCH 29.8 pg (25.0-35.0); Mean Platelet Volume 7.6; Monocytes # (A) 0.4 k/uL (0-1.0); Monocytes % (A) 6 %; Neutrophils # (A) 4.1 k/uL (1.3-7.7); Neutrophils % (A) 60 %; Platelet Count 169 k/uL (150-450); RBC 4.27 m/uL (3.80-5.40); RDW 12.5 % (11.5-15.5); WBC 6.9 k/uL (3.8-10.6)
--- NOTE | 2022-03-24 21:04 | XR ---
EXAMINATION TYPE: XR chest 2V DATE OF EXAM: 03/24/2022 8:56 PM COMPARISON: Chest radiographs from 09/01/2021. TECHNIQUE: XR chest 2V Frontal and lateral views of the chest. CLINICAL INDICATION:Female, 76 years old with history of Chest Pain; FINDINGS: Lungs/Pleura: There is no evidence of pleural effusion, focal consolidation, or pneumothorax. Pulmonary vascularity: Unremarkable. Heart/mediastinum: Cardiomediastinal silhouette is unremarkable. Musculoskeletal: Multiple level degenerative disc disease changes seen throughout the spine. No acute osseous abnormality. IMPRESSION: No acute cardiopulmonary disease/process.
[2022-03-24 21:08] LABS: Prothrombin Time 10.9 sec (9.0-12.0)
[2022-03-24 22:50] LABS: Albumin 4.3 g/dL (3.5-5.0); Total Bilirubin 1.7 mg/dL (0.2-1.3); Total Protein 7.2 g/dL (6.3-8.2)
[2022-03-24 23:08] LABS: Potassium 5.6 mmol/L (3.5-5.1)
[2022-03-24] MEDS ORDERED: SODIUM CHLORIDE 0.9% 1,000 ML IV ONE (23:12)
[2022-03-24] MEDS ORDERED: ASPIRIN 81 MG PO STA (23:13)
[2022-03-24] MEDS ORDERED: SODIUM POLYSTYRENE SULFONATE 15 GM/60 ML BOTTLE PO STA (23:17)
--- NOTE | 2022-03-25 01:44 | US ---
EXAMINATION TYPE: US gallbladder DATE OF EXAM: 03/25/2022 COMPARISON: NONE CLINICAL HISTORY: chest pain, elevated LFTs. pain EXAM MEASUREMENTS: Liver Length: 13.5 cm Gallbladder Wall: .1 cm CBD: .5 cm Right Kidney: 9.0 x 3.9 x 3.3 cm Pancreas: Obscured by bowel gas Liver: Increased attenuation Gallbladder: Multiple stones seen largest 2 cm. Evidence for sonographic Elena's sign: No CBD: wnl Right Kidney: Anechoic area upper pole 2.5 x 1.6 x 2.7 cm. Mid pole 1.4x 1.6 x 2.5 cm. IMPRESSION: There are multiple gallstones. No dilated ducts. Right renal cortical cysts. No hydronephrosis.
[2022-03-25] MEDS ORDERED: NALOXONE 0.4 MG/ML 1 ML VIAL IV PRN (02:36)
--- NOTE | 2022-03-25 02:59 | P.HPIM ---
History of Present Illness H&P Date: 03/24/22 Chief Complaint: Chest pain 76-year-old female with diabetes mellitus, hypertension Patient comes in due to complaint of chest pain. Which has started all of a sudden while at home doing nothing. Patient unable to provide any meaningful history due to forgetfulness patient daughter at bedside provide history she reports that around evening on Saturday patient mother reported that she experienced some chest pain earlier during the day which has since resolved pain was associated with some ear ache no other information is available at this time is unknown whether she was dizzy and lightheaded or whether she has shortness of breath or palpitations with that. She she reports no cardiac history or workup in the past denies any history of coronary artery disease. She also has history of cholelithiasis is 2008 which has not been removed. She denies any abdominal pain nausea or vomiting Patient seems to be comfortable right now denies any chest pain or trouble b reathing and she is eager to go home Workup in the ED showed slightly elevated troponin and slightly elevated potassium vital signs are stable Review of Systems Pertinent positives as noted in HPI. All other systems were reviewed and are negative Past Medical History Past Medical History: Dementia, Diabetes Mellitus, Hyperlipidemia, Mitral Valve Prolapse (MVP) Additional Past Medical History / Comment(s): vertigo, tachycardia, MVP, high cholesterol, cataracts, gall stones History of Any Multi-Drug Resistant Organisms: None Reported Past Surgical History: Appendectomy, Hysterectomy Additional Past Surgical History / Comment(s): r breast biopsy, colonoscopy, cataracts, D&C, Past Psychological History: No Psychological Hx Reported Smoking Status: Former smoker Past Alcohol Use History: None Reported Past Drug Use History: None Reported - Past Family History Family Family Medical History: No Reported History Medications and Allergies Home Medications Medication Instructions Recorded Confirmed Type Aspirin 325 mg PO DAILY 10/21/15 02/20/16 History Atorvastatin Calcium [Lipitor] 20 mg PO DAILY 10/21/15 02/20/16 History Benazepril HCl 10 mg PO DAILY 10/21/15 02/20/16 History Biotin 7,500 mcg PO DAILY 10/21/15 02/20/16 History Furosemide [Lasix] 20 mg PO DAILY 10/21/15 02/20/16 History Liraglutide [Victoza 3-Kenji] 1.8 mg SQ DAILY 10/21/15 02/20/16 History Zinc 50 mg PO DAILY 10/21/15 02/20/16 History atenoloL [Tenormin] 25 mg PO DAILY 10/21/15 02/20/16 History metFORMIN HCL [Glucophage Xr] 500 mg PO BID 10/21/15 02/20/16 History Ascorbic Acid [Vitamin C] 600 mg PO DAILY 02/18/16 02/20/16 History Biotin 7,500 mcg PO 02/18/16 02/20/16 History Cephalexin [Keflex] 500 mg PO Q8HR #12 cap 02/18/16 02/20/16 Rx Cholecalciferol [Vitamin D3] 400 unit PO DAILY@1200 02/18/16 02/20/16 History Multivitamins, Thera [Multivitamin] 1 tab PO DAILY 02/18/16 02/20/16 History Spironolactone [Aldactone] 25 mg PO DAILY 02/18/16 02/20/16 History Tolterodine Tartrate [Detrol LA] 4 mg PO DAILY 02/18/16 02/20/16 History Vitamin B Complex 1 each PO 02/18/16 02/20/16 History Vitamin E (Dl,Tocopheryl Acet) 400 unit PO DAILY 02/18/16 02/20/16 History [Vitamin E] metroNIDAZOLE 1% GEL [Metrogel 1%] 1 applic TOPICAL DAILY 02/18/16 02/20/16 History Allergies Allergy/AdvReac Type Severity Reaction Status Date / Time clindamycin Allergy Diarrhea Verified 09/01/21 09:55 morphine Allergy Rash/Hives Verified 09/01/21 09:55 Penicillins Allergy Rash/Hives Verified 09/01/21 09:55 Sulfa (Sulfonamide Allergy Rash/Hives Verified 09/01/21 09:55 Antibiotics) Physical Exam Vitals: Vital Signs Temp Pulse Resp BP Pulse Ox 03/24/22 19:23 98.2 F 85 16 160/81 98 Intake and Output 03/24/22 03/24/22 03/25/22 14:59 22:59 06:59 Other: Weight 69.853 kg Constitutional: No acute distress, conversant, pleasant Eyes: Anicteric sclerae, moist conjunctiva, Pupils equal round reactive to light ENMT: NC/AT Oropharynx clear, no erythema, or exudates Neck: Supple, FROM, no masses, or JVD No carotid bruits No thyromegaly Lungs: Clear to auscultation Clear to percussion Normal respiratory effort, no accessory muscle use Cardiovascular: Heart regular in rate and rhythm, No murmurs, gallops, or rubs No peripheral edema Abdominal: Soft Nontender, no guarding, rebound or rigidity Abdomen moving with respiration Normoactive bowel sounds No hepatomegaly, No splenomegaly No palpable mass No abdominal wall hernia noted Skin: Normal temperature, tone, texture, turgor No induration No subcutaneous nodules No rash, lesions No ulcers Extremities: No digital cyanosis No clubbing Pedal pulses intact and symmetrical Radial pulses intact and symmetrical No calf tenderness Psychiatric: Alert and oriented to person, place Neuro Muscles Strength 4/5 in all 4 extremities Sensation to light touch grossly present throughout Cranial nerves II-XII grossly intact No focal sensory deficits Lymphatics: no palpable cervical or supraclavicular , or inguinal lymph nodes Results CBC & Chem 7: 03/24/22 20:49 03/24/22 22:00 Labs: Abnormal Lab Results - Last 24 Hours (Table) 03/24/22 03/24/22 03/24/22 Range/Units 20:49 22:00 22:00 APTT 20.0 L (22.0-30.0) sec Potassium 5.6 H (3.5-5.1) mmol/L Chloride 108 H (98-107) mmol/L BUN 24 H (7-17) mg/dL Creatinine 1.18 H (0.52-1.04) mg/dL Glucose 127 H (74-99) mg/dL Total Bilirubin 1.7 H (0.2-1.3) mg/dL AST 68 H (14-36) U/L Troponin I 0.042 H* (0.000-0.034) ng/mL Assessment and Plan Assessment: atypical chest pain rule out ACS EKG no acute changes CXR no acute pathology trops negative X2 security monitor monitor vital signs ASA, statin cardiology consult A1c, lipid panel , TSH pain control Chronic conditions Diabetes mellitus insulin sliding scale Hypertension resume home blood pressure medications dvt prophylaxis heparin subcu 3 times a day Full code
[2022-03-25 06:01] LABS: Glucose,Whole Blood 119 mg/dL (70-110)
[2022-03-25] MEDS: INSULIN ASPART (NovoLOG) 100 UNIT/ML VIAL SQ SCH ×4 (06:15→20:42)
--- NOTE | 2022-03-25 08:54 | P.PN ---
Subjective Progress Note Date: 03/25/22 No new complaints. Reports pain is improved. Pending ACS workup. 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 ASA, statin cardiology consult A1c, lipid panel , TSH pain control Chronic conditions Diabetes mellitus insulin sliding scale Hypertension resume home blood pressure medications dvt prophylaxis heparin subcu 3 times a day Full code Objective - Vital Signs Vital signs: Vital Signs Temp 97.9 F 03/25/22 04:00 Pulse 79 03/25/22 08:50 Resp 16 03/25/22 08:50 BP 106/66 03/25/22 08:50 Pulse Ox 99 03/25/22 08:50 FiO2 Intake & Output 03/24/22 03/25/22 03/25/22 18:59 06:59 18:59 Intake Total 450 Balance 450 Weight 69.853 kg Intake: Intake, IV Titration 450 Amount Sodium Chloride 0.9% 1, 450 000 ml @ 999 mls/hr IV . Q1H1M ONE Rx#:[id number] - Labs CBC & Chem 7: 03/24/22 20:49 03/24/22 22:00 Labs: Abnormal Lab Results - Last 24 Hours (Table) 03/24/22 03/24/22 03/24/22 Range/Units 20:49 22:00 22:00 APTT 20.0 L (22.0-30.0) sec Potassium 5.6 H (3.5-5.1) mmol/L Chloride 108 H (98-107) mmol/L BUN 24 H (7-17) mg/dL Creatinine 1.18 H (0.52-1.04) mg/dL Glucose 127 H (74-99) mg/dL POC Glucose (mg/dL) (70-110) mg/dL Total Bilirubin 1.7 H (0.2-1.3) mg/dL AST 68 H (14-36) U/L Troponin I 0.042 H* (0.000-0.034) ng/mL 03/25/22 Range/Units 05:59 APTT (22.0-30.0) sec Potassium (3.5-5.1) mmol/L Chloride (98-107) mmol/L BUN (7-17) mg/dL Creatinine (0.52-1.04) mg/dL Glucose (74-99) mg/dL POC Glucose (mg/dL) 119 H (70-110) mg/dL Total Bilirubin (0.2-1.3) mg/dL AST (14-36) U/L Troponin I (0.000-0.034) ng/mL
[2022-03-25] MEDS ORDERED: lisinopriL 10 MG TAB PO SCH (09:00)
[2022-03-25] MEDS ORDERED: ASPIRIN 325 MG TAB PO SCH (09:00)
[2022-03-25] MEDS ORDERED: ATORVASTATIN 20 MG TAB PO SCH (09:00)
[2022-03-25] MEDS ORDERED: SPIRONOLACTONE 25 MG TAB PO SCH (09:00)
[2022-03-25] MEDS: lisinopriL 5 MG TAB PO SCH (10:52)
[2022-03-25] MEDS: ISOSORBIDE MONONITRATE ER 30 MG TAB.ER.24H PO SCH (10:53)
[2022-03-25] MEDS: atenoloL 25 MG TAB PO SCH (10:53)
[2022-03-25] MEDS: HEPARIN SODIUM,PORCINE/PF 5,000 UNIT/0.5 ML SYRINGE SQ SCH ×3 (10:54→23:15)
[2022-03-25 11:04] LABS: ALT 20 U/L (4-34); African American GFR (CKD) 57 (>60 ml/min/1.73 sqM); Albumin 3.3 g/dL (3.5-5.0); Anion Gap 4 mmol/L; Blood Urea Nitrogen 20 mg/dL (7-17); Calcium 8.5 mg/dL (8.4-10.2); Carbon Dioxide 24 mmol/L (22-30); Chloride 109 mmol/L (98-107); Glucose 119 mg/dL (74-99); Non-African American GFR(CKD) 49 (>60 ml/min/1.73 sqM); Sodium 137 mmol/L (137-145); Total Bilirubin 0.8 mg/dL (0.2-1.3); Total Protein 5.9 g/dL (6.3-8.2)
[2022-03-25 11:17] LABS: AST 37 U/L (14-36); Alkaline Phosphatase 90 U/L (38-126); Potassium 4.2 mmol/L (3.5-5.1)
[2022-03-25 11:42] LABS: Glucose,Whole Blood 117 mg/dL (70-110)
[2022-03-25 16:28] LABS: Glucose,Whole Blood 109 mg/dL (70-110)
--- NOTE | 2022-03-25 16:57 | CONS ---
BLANCHE Wilkerson is a 76-year-old lady with history of [id number] diabetes, hypertension, dyslipidemia, who has mild dementia and stays at home with regular help at home and has a son or daughter visiting her on a regular basis but lives independently, still drives to limited distances, who developed an episode of chest discomfort. The patient's daughter who was with her states that she had chest pain that lasted on and off for several hours and she brought her to the emergency room here at [facility]. EKG shows sinus rhythm with left bundle branch block. The first set of troponin was elevated and she is admitted to hospital with that diagnosis. She has not had any further episodes of chest pain and in fact does not have any recollection of having chest pain. At the time of my evaluation this morning, she appears comfortable at rest and is free of symptoms. She is currently on aspirin, Tenormin, Lipitor, Imdur, Zestril and subcu heparin. There is no prior history of coronary artery disease or congestive heart failure. I talked at length to the patient and her son and daughter about her treatment options including optimal medical therapy with watchful waiting versus invasive angiography. Understanding risks and benefits, they are going to give it a thought and make a decision. If they decide with medical therapy, we can continue with medical therapy and consider an outpatient stress test and if there is large ischemia, consider cardiac catheterization then. PAST MEDICAL HISTORY: Significant for hypertension, diabetes, dyslipidemia. MEDICATIONS: Include: Aspirin, Tenormin, benazepril, Lipitor, metformin, Lasix, aspirin. ALLERGIES: THE PATIENT IS ALLERGIC TO SULFA, PENICILLIN, MORPHINE AND CLINDAMYCIN. FAMILY HISTORY: Negative for premature coronary artery disease. SOCIAL HISTORY: Negative for current smoking, EtOH abuse or drug abuse. REVIEW OF SYSTEMS: HEENT is unremarkable. Cardiac as described above. Respiratory as described above. GI negative. negative. ALLERGY/IMMUNOLOGY: Negative. MUSCULOSKELETAL: Negative. Endocrine: Negative. Hematological negative. Derm negative. Constitutional negative. FORMULA BOTTLER significant for dementia. EXAM: Comfortable at rest. Vital signs are stable. There is no jugular venous distention. Carotid upstroke is normal. There is no bruit. Chest exam reveals good air entry bilaterally. Heart exam reveals first and second heart sounds. No gallop. No murmur. No rub. Abdomen is soft, nontender. Examination of extremities did not reveal any edema. Peripheral pulses are felt. FORMULA BOTTLER exam did not reveal focal neurological deficits. LABS: Labs show that the troponin is mildly elevated. Creatinine is 1.1, hemoglobin is 12.7. ASSESSMENT AND PLAN: Acute non ST segment elevation myocardial infarction. PLAN: I will perform cardiac catheterization on her tomorrow morning if they decide to. I will obtain a 2D echo and if the patient opts for medical therapy, we may be able to discharge her home tomorrow. MMNESS / POLAN: [id number] /
[2022-03-25 17:37] LABS: Chol/HDL Ratio 2.66 Ratio; LDL Cholesterol,Calculated 70.6 mg/dL (0.0-131.0)
[2022-03-25 20:12] LABS: Glucose,Whole Blood 143 mg/dL (70-110)
[2022-03-26] MEDS: INSULIN ASPART (NovoLOG) 100 UNIT/ML VIAL SQ SCH ×4 (06:09→20:34)
[2022-03-26 06:13] LABS: Glucose,Whole Blood 135 mg/dL (70-110)
--- NOTE | 2022-03-26 08:27 | P.PN ---
Subjective Progress Note Date: 03/26/22 No new complaints. Reports pain is improved. Pending [facility] scheduled today. Gen: awake, alert HEENT: normocephalic, atraumatic, good hearing acuity, moist mucous membranes Resp: good air exchange, breathing comfortably with no accessory muscle use CVS: good distal perfusion x 4, GI: soft, NTTP, ND : no SPT, no CVAT, leon catheter not present MSK: no pitting edema, no clubbing Neuro: non-focal, moving all extremities Psych: cooperative, euthymic mood Assessment/plan: NSTEMI EKG no acute changes CXR no acute pathology trops negative X2 mirror specialist monitor vital signs ASA, statin cardiology consult A1c, lipid panel , TSH pain control [facility] on 03/26, pending Chronic conditions Diabetes mellitus insulin sliding scale Hypertension resume home blood pressure medications dvt prophylaxis heparin subcu 3 times a day Full code Objective - Vital Signs Vital signs: Vital Signs Temp 98.0 F 03/26/22 04:00 Pulse 86 03/26/22 04:00 Resp 18 03/26/22 04:00 BP 107/60 03/26/22 04:00 Pulse Ox 98 03/26/22 04:00 FiO2 Intake & Output 03/25/22 03/26/22 03/26/22 18:59 06:59 18:59 Intake Total 236 100 Balance 236 100 Intake: Oral 236 100 Other: # Voids 3 - Labs CBC & Chem 7: 03/24/22 20:49 03/25/22 09:35 Labs: Abnormal Lab Results - Last 24 Hours (Table) 03/25/22 03/25/22 03/25/22 Range/Units 09:35 11:40 20:11 Chloride 109 H (98-107) mmol/L BUN 20 H (7-17) mg/dL Creatinine 1.08 H (0.52-1.04) mg/dL Glucose 119 H (74-99) mg/dL POC Glucose (mg/dL) 117 H 143 H (70-110) mg/dL AST 37 H (14-36) U/L Total Protein 5.9 L (6.3-8.2) g/dL Albumin 3.3 L (3.5-5.0) g/dL 03/26/22 Range/Units 06:12 Chloride (98-107) mmol/L BUN (7-17) mg/dL Creatinine (0.52-1.04) mg/dL Glucose (74-99) mg/dL POC Glucose (mg/dL) 135 H (70-110) mg/dL AST (14-36) U/L Total Protein (6.3-8.2) g/dL Albumin (3.5-5.0) g/dL
[2022-03-26] MEDS ORDERED: ALPRAZolam 0.5 MG TAB PO PRN (08:54)
[2022-03-26] MEDS ORDERED: ALPRAZolam 0.25 MG TAB PO PRN (08:54)
[2022-03-26] MEDS ORDERED: NITROGLYCERIN SL TABS 0.4 MG TAB SUBLINGUAL PRN (08:54)
[2022-03-26] MEDS ORDERED: ATORVASTATIN 80 MG TAB PO STA (08:56)
[2022-03-26] MEDS ORDERED: ASPIRIN 325 MG TAB PO STA (08:57)
[2022-03-26] MEDS ORDERED: lisinopriL 5 MG TAB PO SCH (09:00)
[2022-03-26] MEDS ORDERED: ISOSORBIDE MONONITRATE ER 30 MG TAB.ER.24H PO SCH (09:00)
[2022-03-26] MEDS ORDERED: SODIUM CHLORIDE 0.9% 1,000 ML in EMPTY BAG 1 BAG IV SCH (09:00)
[2022-03-26] MEDS: ISOSORBIDE MONONITRATE ER 30 MG TAB.ER.24H PO SCH (09:25)
[2022-03-26] MEDS: atenoloL 25 MG TAB PO SCH (09:26)
[2022-03-26] MEDS: lisinopriL 5 MG TAB PO SCH (09:26)
[2022-03-26] MEDS ORDERED: VERAPAMIL 2.5 MG/ML 2 ML AMP ONE (09:44)
[2022-03-26] MEDS ORDERED: fentaNYL (PF) 50 MCG/ML 2 ML AMP ONE (10:00)
[2022-03-26] MEDS ORDERED: HEPARIN SODIUM 1,000 UN/ML (10ML VL) ONE (10:00)
[2022-03-26] MEDS ORDERED: IV FLUID CONTINUATION 1,000 ML IV ONE (10:03)
[2022-03-26] MEDS ORDERED: MIDAZOLAM 2 MG/2 ML VIAL IV ONE (10:22)
[2022-03-26] MEDS ORDERED: fentaNYL (PF) 50 MCG/ML 2 ML AMP IV ONE (10:22)
[2022-03-26] MEDS ORDERED: LIDOCAINE 1% INJ 10MG/ML (5 ML VIAL-PF) SQ ONE (10:24)
[2022-03-26] MEDS ORDERED: VERAPAMIL SYRINGE (5 MG/10 ML) INTRAARTER ONE (10:26)
[2022-03-26] MEDS ORDERED: HEPARIN SODIUM 1,000 UN/ML (10ML VL) IV ONE (10:30)
[2022-03-26] MEDS ORDERED: IOPAMIDOL-370 125ML BTL INJ ONE (10:48)
--- NOTE | 2022-03-26 11:01 | P.PN ---
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 We have been following the patient for NSTEMI. Patient seen and examined at bedside. Patient presented to the hospital with complaints of chest pain. EKG revealed sinus rhythm with left bundle branch block. First set of troponin elevated. Patient was evaluated by Dr. Barajas and recommended performing cardiac catheterization. Family and patient are agreeable. Patient has had no further chest pain overnight, denies shortness of breath. Labs: Additional troponins were negative 2, labs pending. 2-D echocardiogram pending Vitals: Blood pressure 130/66, heart rate 86, afebrile, saturation 97% room air GENERAL: Well-appearing, well-nourished and in no acute distress. NECK: Supple without JVD or thyromegaly. LUNGS: Breath sounds clear to auscultation bilaterally. Respiration equal and unlabored. No wheezes, rales or rhonchi. HEART: Regular rate and rhythm without murmurs, rubs or gallops. S1 and S2 heard. EXTREMITIES: Normal range of motion, no edema. No clubbing or cyanosis. Per ipheral pulses intact. ASSESSMENT NSTEMI History of hypertension Dyslipidemia Rdg-mvpiavs-zayultqcd diabetes PLAN Plan for cardiac catheterization with Dr. Barajas today. I have discussed the risks, benefits and alternative therapies for the above- mentioned procedure and for both sedation/analgesia as well as necessary blood product administration, if indicated, as they pertain to this patient. The patient has indicated understanding and acceptance of the risks and procedures discussed. Questions have been answered appropriately and she is agreeable to move forward with the above-stated procedure. 2D Echo pending, will review Further recommendations based on clinical course Nurse Practitioner note has been reviewed, I agree with a documented findings and plan of care. Patient was seen and examined. Objective - Vital Signs Vital signs: Vital Signs Temp 97 F L 03/26/22 08:00 Pulse 86 03/26/22 04:00 Resp 16 03/26/22 08:00 BP 130/66 03/26/22 08:00 Pulse Ox 97 03/26/22 08:00 FiO2 Intake & Output 03/25/22 03/26/22 03/26/22 18:59 06:59 18:59 Intake Total 236 100 50 Balance 236 100 50 Intake: IV 50 Oral 236 100 Other: # Voids 3 - Labs CBC & Chem 7: 03/24/22 20:49 03/25/22 09:35 Labs: Abnormal Lab Results - Last 24 Hours (Table) 03/25/22 03/25/22 03/25/22 Range/Units 09:35 11:40 20:11 Chloride 109 H (98-107) mmol/L BUN 20 H (7-17) mg/dL Creatinine 1.08 H (0.52-1.04) mg/dL Glucose 119 H (74-99) mg/dL POC Glucose (mg/dL) 117 H 143 H (70-110) mg/dL AST 37 H (14-36) U/L Total Protein 5.9 L (6.3-8.2) g/dL Albumin 3.3 L (3.5-5.0) g/dL 03/26/22 Range/Units 06:12 Chloride (98-107) mmol/L BUN (7-17) mg/dL Creatinine (0.52-1.04) mg/dL Glucose (74-99) mg/dL POC Glucose (mg/dL) 135 H (70-110) mg/dL AST (14-36) U/L Total Protein (6.3-8.2) g/dL Albumin (3.5-5.0) g/dL
[2022-03-26] MEDS: HEPARIN SODIUM,PORCINE/PF 5,000 UNIT/0.5 ML SYRINGE SQ SCH ×2 (11:14→17:12)
[2022-03-26 12:11] LABS: Glucose,Whole Blood 113 mg/dL (70-110)
[2022-03-26 12:27] LABS: Basophils % (A) 1 %; Eosinophils # (A) 0.3 k/uL (0-0.7); Eosinophils % (A) 5 %; HCT 35.9 % (34.0-46.0); HGB 11.7 gm/dL (11.4-16.0); Lymphocytes # (A) 2.1 k/uL (1.0-4.8); Lymphocytes % (A) 38 %; MCH 30.4 pg (25.0-35.0); MCHC 32.7 g/dL (31.0-37.0); MCV 93.1 fL (80.0-100.0); Mean Platelet Volume 8.7; Monocytes # (A) 0.4 k/uL (0-1.0); Monocytes % (A) 7 %; Neutrophils # (A) 2.7 k/uL (1.3-7.7); Neutrophils % (A) 48 %; Platelet Count 129 k/uL (150-450); RBC 3.86 m/uL (3.80-5.40); RDW 12.8 % (11.5-15.5); WBC 5.5 k/uL (3.8-10.6)
[2022-03-26 12:31] LABS: Potassium 4.9 mmol/L (3.5-5.1)
[2022-03-26 16:50] LABS: Glucose,Whole Blood 121 mg/dL (70-110)
--- NOTE | 2022-03-26 17:05 | CC ---
CARDIAC CATHETERIZATION REPORT INDICATION: Unstable angina. PROCEDURE NOTE: After obtaining informed consent, left heart catheterization, coronary angiogram are performed via the right radial artery using a size 4 right Ambreen catheter, 3 and half left Ambreen catheter. Left ventricular hemodynamics were obtained with the right Ambreen catheter. The patient tolerated the procedure well without any obvious immediate complications. She received moderate conscious sedation. Total sedation time was 25 minutes. Right radial artery access was obtained using a micropuncture needle with Seldinger technique. The catheters and wires were floated into the ascending aorta under fluoroscopic guidance. The procedure was completed uneventfully. The patient received 5 mg of verapamil and 4000 units of intravenous heparin as per protocol. FINDINGS: RIGHT CORONARY ARTERY: Right coronary artery is a large dominant vessel and shows mild nonobstructive disease. LEFT MAIN: Left main coronary artery is a normal-sized vessel and is free of stenosis. Divides into left anterior descending coronary artery and circumflex coronary artery. LEFT ANTERIOR DESCENDING CORONARY ARTERY: LAD and its branches, circumflex coronary artery and its branches are free of significant stenosis. CONCLUSIONS: 1. Mild nonobstructive coronary artery disease. 2. Patient's symptoms of chest pain are probably noncardiac in origin. MMODL / IJN: [id number] /
[2022-03-26 19:33] LABS: Glucose,Whole Blood 139 mg/dL (70-110)
[2022-03-27] MEDS: HEPARIN SODIUM,PORCINE/PF 5,000 UNIT/0.5 ML SYRINGE SQ SCH ×2 (00:48→09:03)
[2022-03-27 06:18] VITALS: RESP 16
[2022-03-27 06:22] LABS: Glucose,Whole Blood 127 mg/dL (70-110)
[2022-03-27] MEDS: INSULIN ASPART (NovoLOG) 100 UNIT/ML VIAL SQ SCH ×2 (06:34→12:04)
[2022-03-27] MEDS ORDERED: HEPARIN SODIUM,PORCINE 10,000 UNIT in SODIUM CHLORIDE 0.9% 1,000 ML IRRIGATION PRN (07:00)
[2022-03-27] MEDS ORDERED: HEPARIN SODIUM,PORCINE 2,500 UNIT in SODIUM CHLORIDE 0.9% 250 ML IRRIGATION PRN (07:00)
[2022-03-27 08:21] LABS: Basophils % (A) 1 %; Eosinophils # (A) 0.2 k/uL (0-0.7); Eosinophils % (A) 6 %; HCT 34.8 % (34.0-46.0); HGB 11.2 gm/dL (11.4-16.0); Lymphocytes # (A) 1.7 k/uL (1.0-4.8); Lymphocytes % (A) 41 %; MCH 30.3 pg (25.0-35.0); MCHC 32.3 g/dL (31.0-37.0); MCV 93.8 fL (80.0-100.0); Mean Platelet Volume 7.5; Monocytes # (A) 0.3 k/uL (0-1.0); Monocytes % (A) 7 %; Neutrophils # (A) 1.7 k/uL (1.3-7.7); Neutrophils % (A) 43 %; Platelet Count 149 k/uL (150-450); RBC 3.71 m/uL (3.80-5.40); RDW 12.7 % (11.5-15.5)
[2022-03-27 09:00] LABS: Calcium 8.3 mg/dL (8.4-10.2); Potassium 4.3 mmol/L (3.5-5.1)
[2022-03-27] MEDS ORDERED: ATORVASTATIN 20 MG TAB PO SCH (09:00)
[2022-03-27] MEDS ORDERED: ASPIRIN 81 MG PO SCH (09:00)
[2022-03-27] MEDS: lisinopriL 5 MG TAB PO SCH (09:02)
[2022-03-27] MEDS: ISOSORBIDE MONONITRATE ER 30 MG TAB.ER.24H PO SCH (09:03)
[2022-03-27] MEDS: atenoloL 25 MG TAB PO SCH (09:03)
[2022-03-27 10:04] VITALS: TEMP 97.8
[2022-03-27 11:53] LABS: Glucose,Whole Blood 137 mg/dL (70-110)
[2022-03-27 12:05] VITALS: BP 100/62; PULSE 73
--- NOTE | 2022-03-27 12:10 | CA ---
Transthoracic Echo Report Name: Rhea Joyce Age: 76 Gender: F : 1945 Exam Date: 03/26/2022 09:02 Exam Location: [facility] Ht (in): 62 Wt (lb): 154 Ordering Physician: Ed Barajas MD ([id number]) Attending/Referring Phys: Jenn STOREY Office Director Audra Pierce, NORBERTO Procedure CPT: Indications: LV function Cardiac Hx: Technical Quality: Good Contrast 1: Total Dose (mL): Contrast 2: Total Dose (mL): MEASUREMENTS (Male / Female) Normal Values FINDINGS Left Ventricle Normal left ventricular size, wall thickness, systolic function with no obvious regional wall motion abnormalities. Left ventricular ejection fraction is estimated at 55%. Right Ventricle The right ventricle is normal in size and function. Right Atrium The right atrium is normal in size. Left Atrium Left atrial size at the upper limits of normal. Mitral Valve Structurally normal mitral valve. There is mild mitral regurgitation. Aortic Valve Structurally normal aortic valve without significant sclerosis or stenosis. There is no aortic regurgitation. Tricuspid Valve Structurally normal tricuspid valve without significant stenosis. Pulmonary artery systolic pressure is normal. Pulmonic Valve Structurally normal pulmonic valve without significant stenosis. There is no pulmonic regurgitation. Pericardium Normal pericardium without effusion. Aorta Normal aortic root dimension. CONCLUSIONS Normal LV size and systolic function. There is mild mitral insufficiency. There is no evidence of any significant pulmonary hypertension. No pericardial effusion Previewed by: Dr. Vladislav Pop MD (Electronically Signed) Final Date: 27 March 2022 12:09
--- NOTE | 2022-03-27 12:17 | P.DS ---
Providers Date of admission: 03/26/22 07:20 Expected date of discharge: 03/27/22 Attending physician: Gabriela Lux MD Consults: 03/25/22 02:48 Consult Physician Routine Consulting Provider: Glenn Coronel Consult Reason/Comments: chest pain Do you want consulting provider notified?: Yes, Notify in am Primary care physician: Anthony Joshi MD Hospital Course: Discharge Diagnosis: Non-ST elevation LA Diabetes mellitus Hypertension Hospital Course: 76-year-old female with diabetes mellitus, hypertension Patient comes in due to complaint of chest pain. Workup in the ED showed slightly elevated troponin. EKG showed LBBB. Patient was admitted for NSTMI. Patient had echo that showed EF 55%. Cardiology did LHC that showed nonobstructive CAD. Cardiology started the patient on Imdur. Per cardiology her chest pain is noncardiac. At the time of discharge patient denied any chest pain. Patient amenable to going home. Patient deemed stable for discharge. Patient seen and examined at bedside.[] Vital signs reviewed and stable. General: [non toxic], [no distress], [appears at stated age] Derm: [warm], [dry] Head: [atraumatic], [normocephalic], [symmetric] Eyes: [EOMI], [no lid lag], [anicteric sclera] Mouth: [no lip lesion], [mucus membranes moist] Cardiovascular: [S1S2 reg], [no murmur], [positive posterior tibial pulse bilateral], Lungs: [CTA bilateral], [no rhonchi, no rales] , [no accessory muscle use] Abdominal: [soft], [ nontender to palpation], [no guarding], [no appreciable organomegaly] Ext: [no gross muscle atrophy], [no edema], [no contractures] Neuro: [ CN II-XI grossly intact], [no focal neuro deficits] Psych: [Alert], [oriented], [appropriate affect] A total of [33] minutes of time were spent preparing this complex discharge summary . Patient Condition at Discharge: Stable Plan - Discharge Summary Discharge Rx Participant: No New Discharge Prescriptions: New Isosorbide Mononitrate ER [Imdur] 30 mg PO DAILY #30 tab Continue atenoloL [Tenormin] 25 mg PO HS Atorvastatin Calcium [Lipitor] 20 mg PO DAILY Zinc 50 mg PO DAILY Furosemide [Lasix] 20 mg PO DAILY Liraglutide [Victoza 3-Kenji] 1.8 mg SQ DAILY Benazepril HCl 10 mg PO DAILY Sodium Bicarbonate Tab 650 mg PO MOWEFR Mirabegron [Myrbetriq] 50 mg PO DAILY Ascorbic Acid [Vitamin C] 2,000 mg PO BID Aspirin EC [Ecotrin] 325 mg PO HS Cholecalciferol [Vitamin D3 (25 Mcg = 1000 Iu)] 50 mcg PO DAILY Discharge Medication List Atorvastatin Calcium [Lipitor] 20 mg PO DAILY 10/21/15 [History] Benazepril HCl 10 mg PO DAILY 10/21/15 [History] Furosemide [Lasix] 20 mg PO DAILY 10/21/15 [History] Liraglutide [Victoza 3-Kenji] 1.8 mg SQ DAILY 10/21/15 [History] Zinc 50 mg PO DAILY 10/21/15 [History] atenoloL [Tenormin] 25 mg PO HS 10/21/15 [History] Ascorbic Acid [Vitamin C] 2,000 mg PO BID 03/25/22 [History] Aspirin EC [Ecotrin] 325 mg PO HS 03/25/22 [History] Cholecalciferol [Vitamin D3 (25 Mcg = 1000 Iu)] 50 mcg PO DAILY 03/25/22 [History] Mirabegron [Myrbetriq] 50 mg PO DAILY 03/25/22 [History] Sodium Bicarbonate Tab 650 mg PO MOWEFR 03/25/22 [History] Isosorbide Mononitrate ER [Imdur] 30 mg PO DAILY #30 tab 03/27/22 [Rx] Follow up Appointment(s)/Referral(s): Anthony Joshi MD [Primary Care Provider] - 1-2 days Ed Barajas MD [STAFF PHYSICIAN] - 1 Week Discharge Disposition: HOME SELF-CARE
--- NOTE | 2022-03-27 13:13 | P.PN ---
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 We have been following the patient for NSTEMI. Patient seen and examined at bedside. Patient presented to the hospital with complaints of chest pain. EKG revealed sinus rhythm with left bundle branch block. First set of troponin elevated. Patient was evaluated by Dr. Barajas and recommended performing cardiac catheterization. Family and patient are agreeable. Patient has had no further chest pain overnight, denies shortness of breath. Patient underwent cardiac catheterization with Dr. Barajas on 03/26/2022 which revealed mild nonobstructive coronary artery disease. 03/27/2022 Patient seen and examined at bedside, no acute distress. She denies any chest pain. Denies any shortness of breath. Her right radial cath site is clean, dry, intact, no hematoma. Some tenderness to palpation. Vitals: Blood pressure 100/62, heart rate 73, afebrile, oxygen saturation is 97% on room air GENERAL: Well-appearing, well-nourished and in no acute distress. NECK: Supple without JVD or thyromegaly. LUNGS: Breath sounds clear to auscultation bilaterally. Respiration equal and unlabored. No wheezes, rales or rhonchi. HEART: Regular rate and rhythm without murmurs, rubs or gallops. S1 and S2 hea rd. EXTREMITIES: Normal range of motion, no edema. No clubbing or cyanosis. Peripheral pulses intact. ASSESSMENT Chest pain Status post cardiac catheterization with with mild nonobstructive coronary artery disease. History of hypertension Dyslipidemia Cyh-ygucvlm-cmniynpny diabetes PLAN From cardiology perspective, no further inpatient cardiac workup at this time. Continue aspirin and statin. Follow up outpatient in 1 week. Nurse Practitioner note has been reviewed, I agree with a documented findings and plan of care. Patient was seen and examined. Objective - Vital Signs Vital signs: Vital Signs Temp 97.8 F 03/27/22 08:00 Pulse 71 03/27/22 08:00 Resp 16 03/27/22 08:00 BP 119/72 03/27/22 08:00 Pulse Ox 97 03/27/22 08:00 FiO2 Intake & Output 03/26/22 03/27/22 03/27/22 18:59 06:59 18:59 Intake Total 410 240 118 Balance 410 240 118 Intake: IV 50 Oral 360 240 118 Other: # Voids 0 3 # Bowel Movements 0 - Labs CBC & Chem 7: 03/27/22 07:37 03/27/22 07:37 Labs: Abnormal Lab Results - Last 24 Hours (Table) 03/26/22 03/26/22 03/26/22 Range/Units 11:06 11:06 12:07 RBC (3.80-5.40) m/uL Hgb (11.4-16.0) gm/dL Plt Count 129 L (150-450) k/uL Chloride 114 H (98-107) mmol/L Carbon Dioxide 18 L (22-30) mmol/L BUN 19 H (7-17) mg/dL Creatinine 1.17 H (0.52-1.04) mg/dL Glucose 126 H (74-99) mg/dL POC Glucose (mg/dL) 113 H (70-110) mg/dL Calcium (8.4-10.2) mg/dL 03/26/22 03/26/22 03/27/22 Range/Units 16:41 19:32 06:21 RBC (3.80-5.40) m/uL Hgb (11.4-16.0) gm/dL Plt Count (150-450) k/uL Chloride (98-107) mmol/L Carbon Dioxide (22-30) mmol/L BUN (7-17) mg/dL Creatinine (0.52-1.04) mg/dL Glucose (74-99) mg/dL POC Glucose (mg/dL) 121 H 139 H 127 H (70-110) mg/dL Calcium (8.4-10.2) mg/dL 03/27/22 03/27/22 Range/Units 07:37 07:37 RBC 3.71 L (3.80-5.40) m/uL Hgb 11.2 L (11.4-16.0) gm/dL Plt Count 149 L (150-450) k/uL Chloride 112 H (98-107) mmol/L Carbon Dioxide 20 L (22-30) mmol/L BUN (7-17) mg/dL Creatinine 1.08 H (0.52-1.04) mg/dL Glucose 148 H (74-99) mg/dL POC Glucose (mg/dL) (70-110) mg/dL Calcium 8.3 L (8.4-10.2) mg/dL
== END 2022-03-27 14:15 | disposition home or self-care (01) | DRG 282 ==
LOC: EC 19:20 → 3SCARD 03-25 02:36 → OBSVTOIN 03-26 07:20
PROVIDERS: ADMIT Internal Medicine; ATTEND Internal Medicine
PROC: B2111ZZ Fluoroscopy of Multiple Coronary Arteries using Low Osmolar Contrast (ICD-10-PCS; principal; 2022-03-26 09:22)
PROC: 4A023N7 Measurement of Cardiac Sampling and Pressure, Left Heart, Percutaneous Approach (ICD-10-PCS; principal; 2022-03-26 09:22)
DX: I21.4 Non-ST elevation (NSTEMI) myocardial infarction (principal); E11.9 Type 2 diabetes mellitus without complications; F03.90 Unspecified dementia, unspecified severity, without behavioral disturbance, psychotic disturbance, mood disturbance, and anxiety; I25.110 Atherosclerotic heart disease of native coronary artery with unstable angina pectoris; Z28.310 Unvaccinated for COVID-19; I10 Essential (primary) hypertension; I44.7 Left bundle-branch block, unspecified; E78.5 Hyperlipidemia, unspecified; E87.5 Hyperkalemia; I34.1 Nonrheumatic mitral (valve) prolapse; E78.00 Pure hypercholesterolemia, unspecified; K80.20 Calculus of gallbladder without cholecystitis without obstruction; Z79.82 Long term (current) use of aspirin; Z79.84 Long term (current) use of oral hypoglycemic drugs; Z79.899 Other long term (current) drug therapy; Z87.891 Personal history of nicotine dependence; Z90.710 Acquired absence of both cervix and uterus; Z88.1 Allergy status to other antibiotic agents; Z88.5 Allergy status to narcotic agent; Z88.0 Allergy status to penicillin; Z88.2 Allergy status to sulfonamides
CPT/HCPCS: 36415; 71046; 76705; 80048; 80053; 80061; 83690; 83735; 83880; 84443; 84484; 85025; 85610; 85730; 93005; 93306; 93458; 99285

== ENCOUNTER → 2023-02-08 | Outpatient (CLI) | payer MEDICARE ==
[2023-02-08 10:16] LABS: African American GFR (CKD) 54 (>60 ml/min/1.73 sqM); Anion Gap 10 mmol/L; Blood Urea Nitrogen 27 mg/dL (7-17); Calcium 9.2 mg/dL (8.4-10.2); Carbon Dioxide 24 mmol/L (22-30); Chloride 104 mmol/L (98-107); Glucose 157 mg/dL (74-99); Non-African American GFR(CKD) 47 (>60 ml/min/1.73 sqM); Sodium 138 mmol/L (137-145)
[2023-02-08 10:18] LABS: Potassium 4.7 mmol/L (3.5-5.1)
== END | disposition home or self-care (01) ==
LOC: LABT 08:44
PROVIDERS: ATTEND Family Medicine
DX: E11.9 Type 2 diabetes mellitus without complications (principal)
CPT/HCPCS: 80048; 83036

== ENCOUNTER → 2024-02-19 | Outpatient (CLI) | payer MEDICARE ==
--- NOTE | 2024-02-19 21:21 | US ---
EXAMINATION TYPE: US kidneys/renal and bladder DATE OF EXAM: 02/19/2024 COMPARISON: Renal ultrasound 06/04/2019 CLINICAL INDICATION: Female, 78 years old with history of N18.30 CHRONIC KIDNEY DISEASE, STAGE 3; CKD EXAM MEASUREMENTS: Right Kidney: 9.4 x 4.7 x 3.9 cm Left Kidney: 8.6 x 4.5 x 2.5 cm Right Kidney: Cortical thinning Left Kidney: Cortical thinning Bladder: Anechoic Bilateral Jets seen: no There is no evidence for hydronephrosis at this point in time. No nephrolithiasis is seen. Cortical medullary differentiation is maintained bilaterally. Cortical thinning bilaterally. No masses are id entified. The urinary bladder is anechoic. Bilateral ureteral jets are not seen. IMPRESSION: 1. No hydronephrosis or nephrolithiasis. 2. Findings of chronic medical renal disease bilaterally.
== END | disposition home or self-care (01) ==
LOC: RADUSWWP 14:19
PROVIDERS: ATTEND Family Medicine
DX: N18.30 Chronic kidney disease, stage 3 unspecified (principal)
CPT/HCPCS: 76770

== ENCOUNTER 2024-06-27 07:58 | Inpatient (IN) | payer MEDICARE ==
--- NOTE | 2024-06-27 08:10 | ED ---
General Adult HPI - General Stated complaint: chest pain Time Seen by Provider: 06/27/24 07:59 Source: patient, EMS, RN notes reviewed Mode of arrival: EMS Limitations: no limitations - History of Present Illness Initial comments: Patient is an 78-year-old female presenting emergency department concerns with chest discomfort. Onset of symptoms was when she woke this morning, around an hour ago. Patient did get some improvement with nitroglycerin by EMS. Patient does have associated dyspnea. Patient felt nauseated earlier. No diaphoresis. Patient unclear if she has history of similar symptoms previously. Patient has a difficult time describing her symptoms. No radiation. - Related Data Home Medications Medication Instructions Recorded Confirmed Atorvastatin Calcium [Lipitor] 20 mg PO DAILY 10/21/15 03/25/22 Benazepril HCl 10 mg PO DAILY 10/21/15 03/25/22 Furosemide [Lasix] 20 mg PO DAILY 10/21/15 03/25/22 Liraglutide [Victoza 3-Kenji] 1.8 mg SQ DAILY 10/21/15 03/25/22 Zinc 50 mg PO DAILY 10/21/15 03/25/22 atenoloL [Tenormin] 25 mg PO HS 10/21/15 03/25/22 Ascorbic Acid [Vitamin C] 2,000 mg PO BID 03/25/22 03/25/22 Aspirin EC [Ecotrin] 325 mg PO HS 03/25/22 03/25/22 Cholecalciferol [Vitamin D3 (25 50 mcg PO DAILY 03/25/22 03/25/22 Mcg = 1000 Iu)] Mirabegron [Myrbetriq] 50 mg PO DAILY 03/25/22 03/25/22 Sodium Bicarbonate Tab 650 mg PO MOWEFR 03/25/22 03/25/22 Previous Rx's Medication Instructions Recorded Isosorbide Mononitrate ER [Imdur] 30 mg PO DAILY #30 tab 03/27/22 Allergies Allergy/AdvReac Type Severity Reaction Status Date / Time morphine Allergy Rash/Hives Verified 06/27/24 08:13 Penicillins Allergy Rash/Hives Verified 06/27/24 08:13 Sulfa (Sulfonamide Allergy Rash/Hives Verified 06/27/24 08:13 Antibiotics) clindamycin AdvReac Diarrhea Verified 06/27/24 08:13 Review of Systems ROS Statement: Those systems with pertinent positive or pertinent negative responses have been documented in the HPI. ROS Other: All systems not noted in ROS Statement are negative. Constitutional: Denies: fever Eyes: Denies: eye pain ENT: Denies: ear pain Respiratory: Reports: dyspnea Cardiovascular: Reports: chest pain Endocrine: Denies: fatigue Gastrointestinal: Denies: abdominal pain Genitourinary: Denies: dysuria Musculoskeletal: Denies: back pain Skin: Denies: rash Past Medical History Past Medical History: Dementia, Diabetes Mellitus, Hyperlipidemia, Mitral Valve Prolapse (MVP) Additional Past Medical History / Comment(s): vertigo, tachycardia, MVP, high cholesterol, cataracts, gall stones History of Any Multi-Drug Resistant Organisms: None Reported Past Surgical History: Appendectomy, Hysterectomy Additional Past Surgical History / Comment(s): r breast biopsy, colonoscopy, cataracts, D&C, Past Anesthesia/Blood Transfusion Reactions: No Reported Reaction Additional Past Anesthesia/Blood Transfusion Reaction / Comment(s): Patient has never received blood. Past Psychological History: No Psychological Hx Reported Smoking Status: Former smoker Past Alcohol Use History: None Reported Past Drug Use History: None Reported - Past Family History Family Family Medical History: No Reported History General Exam Limitations: no limitations General appearance: alert, in no apparent distress Head exam: Present: normocephalic Eye exam: Present: normal appearance Neck exam: Present: normal inspection Respiratory exam: Present: normal lung sounds bilaterally Cardiovascular Exam: Present: regular rate, normal rhythm, normal heart sounds Expanded Peripheral pulses: 2+: Radial (R), Radial (L), Dorsalis Pedis (R), Dorsalis Pedis (L) GI/Abdominal exam: Present: soft. Absent: tenderness Extremities exam: Present: normal inspection. Absent: pedal edema, calf tende rness Neurological exam: Present: alert Psychiatric exam: Present: normal affect, normal mood Skin exam: Present: normal color Course Vital Signs 06/27/24 08:04 Temperature 98.7 F Pulse Rate 99 Respiratory 22 Rate Blood Pressure 132/78 O2 Sat by Pulse 98 Oximetry EKG Findings - EKG Results: EKG: interpreted by ERMD (Left axis. Low QRS voltage inferior and septal Q waves.), sinus rhythm, normal ST/T Medical Decision Making - Medical Decision Making Was pt. sent in by a medical professional or institution (, PA, FOOD EXPEDITOR, urgent care, hospital, or halfway...) When possible be specific @ -No Did you speak to anyone other than the patient for history (EMS, parent, family, police, friend...)? What history was obtained from this source @ -Daughter does arrive later and helps provide additional history of symptoms Did you review nursing and triage notes (agree or disagree)? Why? @ -I reviewed and agree with nursing and triage notes Were old charts reviewed (outside hosp., previous admission, EMS record, old EKG, old radiological studies, urgent care reports/EKG's, halfway records)? Report findings @ -No old charts were reviewed Differential Diagnosis (chest pain, altered mental status, abdominal pain women, abdominal pain men, vaginal bleeding, weakness, fever, dyspnea, syncope, headache, dizziness, GI bleed, back pain, seizure, CVA, palpatations, mental health, musculoskeletal)? @ -Differential Chest Pain: Stable Angina, Unstable Angina, STEMI, NSTEMI Aortic Dissection, Pneumothorax, Musculoskeletal, Esophageal Spasm GERD, Cholecystitis, Pancreatitis, Zoster, this is not meant to be an all-inclusive list. EKG interpreted by me (3pts min.). @ -As above X-rays interpreted by me (1pt min.). @ -Chest x-ray shows no acute process CT interpreted by me (1pt min.). @ -None done U/S interpreted by me (1pt. min.). @ -None done What testing was considered but not performed or refused? (CT, X-rays, U/S, labs)? Why? @ -Considered CT of the chest with borderline D-dimer however after discussion with Dr. Juarez he will evaluate patient with this prior to being ordered in the urgency department. What meds were considered but not given or refused? Why? @ -None Did you discuss the management of the patient with other professionals (professionals i.e. , PA, FOOD EXPEDITOR, lab, RT, psych nurse, 7th grade social studies teacher, furnace combustion analyst, teacher, youth corrections officer, application release manager)? Give summary @ -Case discussed with Dr. Adkins who will admit covering Dr. Martinez Was smoking cessation discussed for >3mins.? @ -No Was critical care preformed (if so, how long)? @ -No Were there social determinants of health that impacted care today? How? (Homelessness, low income, unemployed, alcoholism, drug addiction, transportation, low edu. Level, literacy, decrease access to med. care, detention, rehab)? @ -No Was there de-escalation of care discussed even if they declined (Discuss DNR or withdrawal of care, Hospice)? DNR status @ -No What co-morbidities impacted this encounter? (DM, HTN, Smoking, COPD, CAD, Cancer, CVA, ARF, Chemo, Hep., AIDS, mental health diagnosis, sleep apnea, morbid obesity)? @ -None Was patient admitted / discharged? Hospital course, mention meds given and route, prescriptions, significant lab abnormalities, going to OR and other pertinent info. @ -Patient presents with chest discomfort with associated nausea and dyspnea. First troponin unremarkable. Patient will be admitted with cardiac consult. Admission orders written. Undiagnosed new problem with uncertain prognosis? @ -No Drug Therapy requiring intensive monitoring for toxicity (Heparin, Nitro, Insulin, Cardizem)? @ -No Were any procedures done? @ -No Diagnosis/symptom? @ -Chest pain Acute, or Chronic, or Acute on Chronic? @ -Acute Uncomplicated (without systemic symptoms) or Complicated (systemic symptoms)? @ -Default Side effects of treatment? @ -No Exacerbation, Progression, or Severe Exacerbation? @ -No Poses a threat to life or bodily function? How? (Chest pain, USA, AR, pneumonia, PE, COPD, DKA, ARF, appy, cholecystitis, CVA, Diverticulitis, Homicidal, Suicidal, threat to staff... and all critical care pts) @ -Threat to cardiac function - Lab Data Result diagrams: 06/27/24 08:17 06/27/24 08:17 Lab Results 06/27/24 06/27/24 06/27/24 Range/Units 08:17 08:17 08:17 WBC 6.9 (3.8-10.6) k/uL RBC 4.73 (3.80-5.40) m/uL Hgb 14.5 (11.4-16.0) gm/dL Hct 42.5 (34.0-46.0) % MCV 89.8 (80.0-100.0) fL MCH 30.6 (25.0-35.0) pg MCHC 34.1 (31.0-37.0) g/dL RDW 12.7 (11.5-15.5) % Plt Count 170 (150-450) k/uL MPV 7.4 Neutrophils % 60 % Lymphocytes % 29 % Monocytes % 4 % Eosinophils % 5 % Basophils % 1 % Neutrophils # 4.1 (1.3-7.7) k/uL Lymphocytes # 2.0 (1.0-4.8) k/uL Monocytes # 0.3 (0-1.0) k/uL Eosinophils # 0.4 (0-0.7) k/uL Basophils # 0.0 (0-0.2) k/uL PT 11.3 (10.0-12.5) sec INR 1.0 (<1.2) APTT 23.6 (22.0-30.0) sec D-Dimer 0.81 H (<0.60) mg/L FEU Sodium 139 (137-145) mmol/L Potassium 3.8 (3.5-5.1) mmol/L Chloride 104 (98-107) mmol/L Carbon Dioxide 30 (22-30) mmol/L Anion Gap 5 mmol/L BUN 10 (7-17) mg/dL Creatinine 1.37 H (0.52-1.04) mg/dL Est GFR (CKD-EPI)AfAm 42 (>60 ml/min/1.73 sqM) Est GFR (CKD-EPI)NonAf 37 (>60 ml/min/1.73 sqM) Glucose 169 H (74-99) mg/dL Calcium 9.7 (8.4-10.2) mg/dL Magnesium 1.7 (1.6-2.3) mg/dL Total Bilirubin 0.7 (0.2-1.3) mg/dL AST 30 (14-36) U/L ALT 19 (4-34) U/L Alkaline Phosphatase 129 H (38-126) U/L Troponin I (0.000-0.034) ng/mL NT-Pro-B Natriuret Pep 350 pg/mL Total Protein 6.4 (6.3-8.2) g/dL Albumin 3.9 (3.5-5.0) g/dL 06/27/24 Range/Units 08:17 WBC (3.8-10.6) k/uL RBC (3.80-5.40) m/uL Hgb (11.4-16.0) gm/dL Hct (34.0-46.0) % MCV (80.0-100.0) fL MCH (25.0-35.0) pg MCHC (31.0-37.0) g/dL RDW (11.5-15.5) % Plt Count (150-450) k/uL MPV Neutrophils % % Lymphocytes % % Monocytes % % Eosinophils % % Basophils % % Neutrophils # (1.3-7.7) k/uL Lymphocytes # (1.0-4.8) k/uL Monocytes # (0-1.0) k/uL Eosinophils # (0-0.7) k/uL Basophils # (0-0.2) k/uL PT (10.0-12.5) sec INR (<1.2) APTT (22.0-30.0) sec D-Dimer (<0.60) mg/L FEU Sodium (137-145) mmol/L Potassium (3.5-5.1) mmol/L Chloride (98-107) mmol/L Carbon Dioxide (22-30) mmol/L Anion Gap mmol/L BUN (7-17) mg/dL Creatinine (0.52-1.04) mg/dL Est GFR (CKD-EPI)AfAm (>60 ml/min/1.73 sqM) Est GFR (CKD-EPI)NonAf (>60 ml/min/1.73 sqM) Glucose (74-99) mg/dL Calcium (8.4-10.2) mg/dL Magnesium (1.6-2.3) mg/dL Total Bilirubin (0.2-1.3) mg/dL AST (14-36) U/L ALT (4-34) U/L Alkaline Phosphatase (38-126) U/L Troponin I <0.012 (0.000-0.034) ng/mL NT-Pro-B Natriuret Pep pg/mL Total Protein (6.3-8.2) g/dL Albumin (3.5-5.0) g/dL Disposition Clinical Impression: Chest pain Disposition: ADMITTED IP TO THIS [facility] Is patient prescribed a controlled substance at d/c from ED?: No Referrals: Terrance Bowden MD [REFERRING] - 1-2 days Time of Disposition: 10:11
[2024-06-27] MEDS: ASPIRIN 81 MG PO STA (08:15)
[2024-06-27 08:43] LABS: Basophils % (A) 1 %; Eosinophils # (A) 0.4 k/uL (0-0.7); Eosinophils % (A) 5 %; HCT 42.5 % (34.0-46.0); HGB 14.5 gm/dL (11.4-16.0); Lymphocytes % (A) 29 %; MCH 30.6 pg (25.0-35.0); MCHC 34.1 g/dL (31.0-37.0); MCV 89.8 fL (80.0-100.0); Mean Platelet Volume 7.4; Monocytes # (A) 0.3 k/uL (0-1.0); Monocytes % (A) 4 %; Neutrophils # (A) 4.1 k/uL (1.3-7.7); Neutrophils % (A) 60 %; Platelet Count 170 k/uL (150-450); RBC 4.73 m/uL (3.80-5.40); RDW 12.7 % (11.5-15.5); WBC 6.9 k/uL (3.8-10.6)
[2024-06-27 08:54] LABS: Partial Thromboplastin Time 23.6 sec (22.0-30.0); Prothrombin Time 11.3 sec (10.0-12.5)
[2024-06-27 08:58] LABS: ALT 19 U/L (4-34); AST 30 U/L (14-36); African American GFR (CKD) 42 (>60 ml/min/1.73 sqM); Albumin 3.9 g/dL (3.5-5.0); Alkaline Phosphatase 129 U/L (38-126); Anion Gap 5 mmol/L; Blood Urea Nitrogen 10 mg/dL (7-17); Calcium 9.7 mg/dL (8.4-10.2); Carbon Dioxide 30 mmol/L (22-30); Chloride 104 mmol/L (98-107); Glucose 169 mg/dL (74-99); Magnesium 1.7 mg/dL (1.6-2.3); Non-African American GFR(CKD) 37 (>60 ml/min/1.73 sqM); Potassium 3.8 mmol/L (3.5-5.1); Sodium 139 mmol/L (137-145); Total Bilirubin 0.7 mg/dL (0.2-1.3); Total Protein 6.4 g/dL (6.3-8.2)
[2024-06-27 09:05] LABS: NT-Pro-B-Type Natriuretic Pept 350 pg/mL
[2024-06-27] MEDS: NITROGLYCERIN OINT 1 INCH/GM PACKET TOPICAL STA (09:11)
--- NOTE | 2024-06-27 09:13 | XR ---
EXAMINATION TYPE: XR chest 2V DATE OF EXAM: 06/27/2024 8:55 AM CLINICAL INDICATION: Female, 78 years old with history of Chest Pain; COMPARISON: Chest radiographs from 03/24/2022 TECHNIQUE: XR chest 2V Frontal and lateral views of the chest. FINDINGS: Lungs/Pleura: There is no evidence of pleural effusion, focal consolidation, or pneumothorax. Pulmonary vascularity: Unremarkable. Heart/mediastinum: Cardiomediastinal silhouette is unremarkable. Musculoskeletal: No acute osseous pathology. IMPRESSION: No acute cardiopulmonary disease/process. [facility], , 06/27/2024 9:10 AM
[2024-06-27] MEDS ORDERED: NITROGLYCERIN SL TABS 0.4 MG TAB SUBLINGUAL PRN (10:11)
[2024-06-27] MEDS ORDERED: DEXTROSE 50% SYRINGE 50 ML IVP PRN ×2 (11:40)
[2024-06-27] MEDS: NITROGLYCERIN SL TABS 0.4 MG TAB SUBLINGUAL STA (11:56)
--- NOTE | 2024-06-27 12:17 | P.HPIM ---
History of Present Illness H&P Date: 06/27/24 History of Presenting Illness: Patient is a pleasant 78-year-old female with a past medical history of CAD with no previous stenting, HFpEF, hypertension, hyperlipidemia, mitral valve prolapse, [id number] diabetes mellitus, and chronic kidney disease. Patient reports she follows with Dr. Bustos for PCP, Dr. Barajas for cardiology and Dr. Rangel for nephrology. She presented to the hospital today secondary to reports of chest pain. Patient reports feeling baseline normal last night when she went to bed and reports awakening this morning with pain to midsternal chest accompanied by shortness of breath, nausea, and vomiting. Patient unable to describe pain to chest stating she just did not feel right. She denies having any radiation of pain and denies any other complaints including fevers, chills, diaphoresis, palpitations, cough or congestion, abdominal pain, or experiencing any numbness/tingling/weakness in her extremities. Upon arrival to our facility, patient underwent evaluation in the emergency department. Vital signs upon arrival show blood pressure 132/78, heart rate 99, respiratory rate 22, temp 98.7 F, and SpO2 of 98% on room air. EKG completed showing normal sinus rhythm at 89 bpm with a left bundle branch block upon personal review and interpretation. Left bundle branch block unchanged from previous EKG completed 03/26/2022. Chest x-ray completed negative for acute cardiopulmonary process. Labs completed and reviewed. CBC unremarkable. Coagulation profile normal findings. D-dimer was slightly elevated at 0.81 but normal with age correction. BMP showing slightly elevated renal function with BUN of 10, creatinine 1.37, and GFR of 37 with baseline creatinine around 1.0. Liver profile showing elevated alkaline phosphatase of 129 otherwise normal findings. Troponin less than 0.012. proBNP 350. Review of systems: Pertinent positives and negatives as discussed in HPI, a complete review of systems was performed and all other systems are negative. Physical exam: Vital signs reviewed and stable. General: Nontoxic, no distress and appears stated age. Derm: Skin warm and dry, normal coloration for ethnicity. Head: Atraumatic, normocephalic and symmetric. Eyes: EOM's intact, no lid lag, and anicteric sclera Mouth: no lip lesions, mucus membranes moist Cardiovascular: regular rate and rhythm with normal S1S2, systolic murmur, positive posterior tibial pulses bilaterally, and cap refill < 2 seconds. Lungs: Respirations even, regular, and unlabored on room air. Lungs CTA bilaterally, no rhonchi, no rales, no wheezing, and no accessory muscle usage. Abdominal: soft, nontender to palpation, no guarding, no appreciable organomegaly Ext: ROM intact. No gross muscle atrophy, 1+ pitting bilateral lower extremity edema, no contractures Neuro: Speech clear, face symmetrical and CN II-XII grossly intact with no noted focal neuro deficits Psych: Alert and oriented to person, place, time, and situation. Appropriate and pleasant affect. Assessment and Plan of Care: Chest pain, rule out acute coronary event CAD HFpEF Hypertension Hyperlipidemia Mitral valve prolapse -Cardiology consulted, appreciate recommendations -Telemetry monitoring -Trend troponins -Aspirin 81 mg daily, atorvastatin 40 mg daily, atenolol 25 mg twice daily, and isosorbide mononitrate 30 mg daily. -Lipid profile with a.m. labs. -Echocardiogram Acute kidney injury on chronic kidney disease stage IIIa -Hold benazepril and Lasix secondary to TRA provide patient was gentle IV fluid hydration at 75 cc/h for 24 hours and reevaluate renal function. -Order placed for urinalysis bladder scanning to monitor for residual and/or retention. 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 -Follow-up on hemoglobin A1c levels. Data and imaging reviewed: As stated above in HPI. The patient is admitted with an anticipated less than 2 midnight stay for evaluation of chest pain CODE STATUS: Full Code DVT prophylaxis: Heparin Discussed with: Pt, pt's family and ED physician Anticipated discharge date: 23-[address]: Home Patient was seen independently by Nurse Practitioner. This document was prepared using [employer] dictation software. Please allow for errors in crepe laminator operator while rare they do occur. I reviewed the documentation as provided by the FRANCK above, who is the original author of this note. I agree with the documented assessment and plan, with the following changes: none Past Medical History Past Medical History: Dementia, Diabetes Mellitus, Hyperlipidemia, Mitral Valve Prolapse (MVP) Additional Past Medical History / Comment(s): vertigo, tachycardia, MVP, high cholesterol, cataracts, gall stones History of Any Multi-Drug Resistant Organisms: None Reported Past Surgical History: Appendectomy, Hysterectomy Additional Past Surgical History / Comment(s): r breast biopsy, colonoscopy, cataracts, D&C, Past Anesthesia/Blood Transfusion Reactions: No Reported Reaction Additional Past Anesthesia/Blood Transfusion Reaction / Comment(s): Patient has never received blood. Past Psychological History: No Psychological Hx Reported Smoking Status: Former smoker Past Alcohol Use History: None Reported Past Drug Use History: None Reported - Past Family History Family Family Medical History: No Reported History Medications and Allergies Home Medications Medication Instructions Recorded Confirmed Type Atorvastatin Calcium [Lipitor] 20 mg PO HS 10/21/15 06/27/24 History Benazepril HCl 10 mg PO DAILY 10/21/15 06/27/24 History Furosemide [Lasix] 20 mg PO DAILY 10/21/15 06/27/24 History Liraglutide [Victoza 3-Kenji] 1.8 mg SQ DAILY 10/21/15 06/27/24 History Zinc 50 mg PO DAILY 10/21/15 06/27/24 History atenoloL [Tenormin] 25 mg PO DAILY 10/21/15 06/27/24 History Ascorbic Acid [Vitamin C] 2,000 mg PO DAILY 03/25/22 06/27/24 History Aspirin EC [Ecotrin] 325 mg PO HS 03/25/22 06/27/24 History Cholecalciferol [Vitamin D3 (25 25 mcg PO DAILY 03/25/22 06/27/24 History Mcg = 1000 Iu)] Mirabegron [Myrbetriq] 50 mg PO DAILY 03/25/22 06/27/24 History Sodium Bicarbonate Tab 650 mg PO MOWEFR@2100 03/25/22 06/27/24 History Isosorbide Mononitrate ER [Imdur] 30 mg PO DAILY #30 tab 03/27/22 06/27/24 Rx Calcium Carbonate [Calcium] 600 mg PO DAILY 06/27/24 06/27/24 History sitaGLIPtin [Januvia] 100 mg PO DAILY 06/27/24 06/27/24 History Allergies Allergy/AdvReac Type Severity Reaction Status Date / Time morphine Allergy Rash/Hives Verified 06/27/24 11:08 Penicillins Allergy Rash/Hives Verified 06/27/24 11:08 Sulfa (Sulfonamide Allergy Rash/Hives Verified 06/27/24 11:08 Antibiotics) clindamycin AdvReac Diarrhea Verified 06/27/24 11:08 Physical Exam Vitals: Vital Signs Temp Pulse Resp BP Pulse Ox 06/27/24 10:12 80 16 133/75 96 06/27/24 08:04 98.7 F 99 22 132/78 98 Intake and Output 06/26/24 06/27/24 06/27/24 22:59 06:59 14:59 Other: Weight 68.039 kg Results CBC & Chem 7: 06/28/24 04:39 06/28/24 04:39 Labs: Abnormal Lab Results - Last 24 Hours (Table) 06/27/24 06/27/24 Range/Units 08:17 08:17 D-Dimer 0.81 H (<0.60) mg/L FEU Creatinine 1.37 H (0.52-1.04) mg/dL Glucose 169 H (74-99) mg/dL Alkaline Phosphatase 129 H (38-126) U/L
[2024-06-27] MEDS: NITROGLYCERIN OINT 1 INCH/GM PACKET TOPICAL SCH (13:07)
[2024-06-27] MEDS: INSULIN ASPART (NovoLOG) 100 UNIT/ML VIAL SQ SCH (13:07)
[2024-06-27] MEDS ORDERED: ONDANSETRON 4 MG/2 ML VIAL IVP PRN (13:21)
[2024-06-27] MEDS: ISOSORBIDE MONONITRATE ER 30 MG TAB.ER.24H PO SCH (14:01)
[2024-06-27] MEDS: ATORVASTATIN 40 MG TAB PO SCH ×2 (14:01→21:26)
[2024-06-27] MEDS: SODIUM CHLORIDE 0.9% 1,000 ML IV SCH (14:03)
[2024-06-27] MEDS: atenoloL 25 MG TAB PO SCH (14:06)
[2024-06-27] MEDS: HEPARIN SODIUM,PORCINE 5,000 UNIT/ML 1 ML VIAL SQ SCH (16:35)
[2024-06-27] MEDS: MAGNESIUM SULFATE-D5W PMX 1 GM in DEXTROSE/WATER 1 100ML.BAG IVPB SCH (16:35)
[2024-06-27 16:47] LABS: Appearance,Urine Clear (Clear); Bilirubin,Urine Negative (Negative); Blood,Urine Negative (Negative); Color,Urine Colorless; Glucose,Urine (UA) Negative (Negative); Ketones,Urine Negative (Negative); Leukocyte Esterase,Urine Negative (Negative); Nitrite,Urine Negative (Negative); Protein,Urine Negative (Negative); Specific Gravity,Urine 1.005 (1.001-1.035); Urobilinogen,Urine <2.0 mg/dL (<2.0)
[2024-06-27 18:02] LABS: Glucose,Whole Blood 128 mg/dL (70-110)
[2024-06-27 21:24] LABS: Glucose,Whole Blood 147 mg/dL (70-110)
[2024-06-28 06:28] LABS: Glucose,Whole Blood 119 mg/dL (70-110)
--- NOTE | 2024-06-28 08:55 | P.CRDCN ---
History of Present Illness Consult date: 06/28/24 Consult reason: chest pain History of present illness: 9 this is Almas Zayas NP, I'm dictating on behalf of Dr. Hess's H&P and A& P The patient was interviewed and examined. HPI: Patient is a pleasant 78-year-old female with a past medical history that includes dementia, diabetes, hyperlipidemia, mitral valve prolapse, vertigo, tachycardia, high cholesterol and gallstones who presents to the hospital with chest discomfort. Patient cannot remember why she came to the hospital due to her dementia. Family member in the room reports that she was reporting chest discomfort yesterday, had retching without any actual vomiting, and reports that she did not feel very good. Family brought her into the emergency department for evaluation. Patient had an EKG completed which was negative for any obvious significant changes. Troponins have been negative x 3. Due to her history and current symptoms the patient was admitted for further evaluation. This morning the patient reports that she feels okay. Again she does not remember why she was brought to the hospital. Patient does have some chest wall tenderness at the point where she reports the chest pain being. ROS: [No fever, chills, or rigors] [no cough, phlegm, or expectoration] [no nausea, vomiting, or diarrhea] [no hematuria, dysuria] [no musculoskelatal complaints] [no strokes or seizures] [no skin lesions] EXAMINATION: GENERAL: Well-appearing, well-nourished and in no acute distress. NECK: Supple without JVD or thyromegaly. LUNGS: Breath sounds clear to auscultation bilaterally. Respiration equal and unlabored. No wheezes, rales or rhonchi. HEART: Regular rate and rhythm without murmurs, rubs or gallops. S1 and S2 heard. EXTREMITIES: Normal range of motion, no edema. No clubbing or cyanosis. Peripheral pulses intact and strong. REVIEW OF LABS, ECG & MEDICAL DATA: LABS: White count 6.9, hemoglobin 14.5, platelets 170, D-dimer 0.81, sodium 139, potassium 3.8, BUN 10, creatinine 1.37, hemoglobin A1c 7.5, magnesium 1.7, troponin x 3-less than 0.012, BNP 350 EKG: Sinus mechanism IMAGING: Chest x-ray dated 06/27/2024 demonstrates no acute cardiopulmonary disease/process. VITALS: Temp 98.4, pulse 75, respirations 16, blood pressure 108/64, O2 saturation 98% on room air IMPRESSION: 1. Chest pain, reproducible on palpation 2. Dementia 3. Diabetes 4. Hyperlipidemia 5. Mitral valve prolapse PLAN: Obtain a dobutamine stress echo tomorrow morning. Resume home medications. Further recommendations based on patient's clinical course. Thank you for the consult and allowing us to participate in the care of this patient. Past Medical History Past Medical History: Dementia, Diabetes Mellitus, Hyperlipidemia, Mitral Valve Prolapse (MVP) Additional Past Medical History / Comment(s): vertigo, tachycardia, MVP, high cholesterol, cataracts, gall stones History of Any Multi-Drug Resistant Organisms: None Reported Past Surgical History: Appendectomy, Hysterectomy Additional Past Surgical History / Comment(s): r breast biopsy, colonoscopy, cataracts, D&C, Past Anesthesia/Blood Transfusion Reactions: No Reported Reaction Additional Past Anesthesia/Blood Transfusion Reaction / Comment(s): Patient has never received blood. Past Psychological History: No Psychological Hx Reported Smoking Status: Former smoker Past Alcohol Use History: None Reported Past Drug Use History: None Reported - Past Family History Family Family Medical History: No Reported History Medications and Allergies Home Medications Medication Instructions Recorded Confirmed Type Atorvastatin Calcium [Lipitor] 20 mg PO HS 10/21/15 06/27/24 History Benazepril HCl 10 mg PO DAILY 10/21/15 06/27/24 History Furosemide [Lasix] 20 mg PO DAILY 10/21/15 06/27/24 History Liraglutide [Victoza 3-Kenji] 1.8 mg SQ DAILY 10/21/15 06/27/24 History Zinc 50 mg PO DAILY 10/21/15 06/27/24 History atenoloL [Tenormin] 25 mg PO DAILY 10/21/15 06/27/24 History Ascorbic Acid [Vitamin C] 2,000 mg PO DAILY 03/25/22 06/27/24 History Aspirin EC [Ecotrin] 325 mg PO HS 03/25/22 06/27/24 History Cholecalciferol [Vitamin D3 (25 25 mcg PO DAILY 03/25/22 06/27/24 History Mcg = 1000 Iu)] Mirabegron [Myrbetriq] 50 mg PO DAILY 03/25/22 06/27/24 History Sodium Bicarbonate Tab 650 mg PO MOWEFR@2100 03/25/22 06/27/24 History Isosorbide Mononitrate ER [Imdur] 30 mg PO DAILY #30 tab 03/27/22 06/27/24 Rx Calcium Carbonate [Calcium] 600 mg PO DAILY 06/27/24 06/27/24 History sitaGLIPtin [Januvia] 100 mg PO DAILY 06/27/24 06/27/24 History Allergies Allergy/AdvReac Type Severity Reaction Status Date / Time morphine Allergy Rash/Hives Verified 06/27/24 11:08 Penicillins Allergy Rash/Hives Verified 06/27/24 11:08 Sulfa (Sulfonamide Allergy Rash/Hives Verified 06/27/24 11:08 Antibiotics) clindamycin AdvReac Diarrhea Verified 06/27/24 11:08 Physical Exam Vitals: Vital Signs Temp Pulse Pulse Resp BP BP Pulse Ox 06/28/24 07:00 98.4 F 75 16 108/64 98 06/28/24 02:00 97.9 F 77 17 120/73 89 L 06/28/24 01:07 18 06/27/24 21:30 79 18 148/86 97 06/27/24 19:07 77 16 95 06/27/24 19:00 77 06/27/24 18:00 80 11 L 06/27/24 17:00 77 12 126/73 06/27/24 16:00 85 12 06/27/24 15:00 77 18 96 06/27/24 14:00 83 17 155/86 93 L 06/27/24 13:00 79 16 155/86 95 06/27/24 12:00 94 22 06/27/24 11:00 77 14 97 06/27/24 10:12 80 16 133/75 96 06/27/24 10:00 79 10 L 133/75 97 06/27/24 09:00 82 12 93 L Intake and Output 06/27/24 06/28/24 06/28/24 22:59 06:59 14:59 Other: Voiding Method Toilet # Voids 1 1 Weight 68.039 kg Results 06/27/24 08:17 06/27/24 08:17 Cardiac Enzymes 06/27/24 06/27/24 06/27/24 Range/Units 08:17 08:17 10:46 AST 30 (14-36) U/L Troponin I <0.012 <0.012 (0.000-0.034) ng/mL 06/27/24 Range/Units 13:06 AST (14-36) U/L Troponin I <0.012 (0.000-0.034) ng/mL Coagulation 06/27/24 Range/Units 08:17 PT 11.3 (10.0-12.5) sec APTT 23.6 (22.0-30.0) sec CBC 06/27/24 Range/Units 08:17 WBC 6.9 (3.8-10.6) k/uL RBC 4.73 (3.80-5.40) m/uL Hgb 14.5 (11.4-16.0) gm/dL Hct 42.5 (34.0-46.0) % Plt Count 170 (150-450) k/uL Comprehensive Metabolic Panel 06/27/24 Range/Units 08:17 Sodium 139 (137-145) mmol/L Potassium 3.8 (3.5-5.1) mmol/L Chloride 104 (98-107) mmol/L Carbon Dioxide 30 (22-30) mmol/L BUN 10 (7-17) mg/dL Creatinine 1.37 H (0.52-1.04) mg/dL Glucose 169 H (74-99) mg/dL Calcium 9.7 (8.4-10.2) mg/dL AST 30 (14-36) U/L ALT 19 (4-34) U/L Alkaline Phosphatase 129 H (38-126) U/L Total Protein 6.4 (6.3-8.2) g/dL Albumin 3.9 (3.5-5.0) g/dL Current Medications Generic Name Dose Route Start Last Admin Trade Name Freq PRN Reason Stop Dose Admin Ascorbic Acid 2,000 mg 06/28/24 09:00 Ascorbic Acid 500 Mg Tab PO DAILY [facility] Aspirin 81 mg 06/28/24 09:00 Aspirin 81 Mg PO DAILY [facility] Atenolol 25 mg 06/27/24 12:00 06/27/24 14:06 Atenolol 25 Mg Tab PO 25 mg DAILY TAMMY Administration Atorvastatin Calcium 40 mg 06/27/24 21:00 06/27/24 21:26 Atorvastatin 40 Mg Tab PO 40 mg HS TAMMY Administration Cholecalciferol 25 mcg 06/28/24 09:00 Cholecalciferol 25 Mcg (1000 Iu) Tablet PO DAILY TAMMY Dextrose/Water 25 ml 06/27/24 11:40 Dextrose 50% Syringe 50 Ml IVP PER PROTOCOL PRN Hypoglycemia Protocol Dextrose/Water 50 ml 06/27/24 11:40 Dextrose 50% Syringe 50 Ml IVP PER PROTOCOL PRN Hypoglycemia Protocol Heparin Sodium (Porcine) 5,000 unit 06/27/24 16:00 06/28/24 00:50 Heparin Sodium,Porcine 5,000 Unit/Ml 1 Ml Vial SQ 5,000 unit Q8HR TAMMY Administration Sodium Chloride 1,000 mls @ 75 mls/hr 06/27/24 11:45 06/28/24 06:33 Saline 0.9% IV 75 mls/hr .[id number] TAMMY Administration Dobutamine HCl/Dextrose 500 mg 250 mls @ 20.412 mls/hr 06/29/24 06:00 / IV Solution IV 06/29/24 23:00 .[id number] PRN Per Protocol Protocol 10 MCG/KG/MIN Insulin Aspart 0 unit 06/27/24 12:30 06/28/24 06:30 Insulin Aspart (Novolog) 100 Unit/Ml Vial SQ Not Given ACHS TAMMY Protocol Isosorbide Mononitrate 30 mg 06/27/24 12:00 06/27/24 14:01 Isosorbide Mononitrate Er 30 Mg Tab.Er.24h PO 30 mg DAILY TAMMY Administration Nitroglycerin 0.4 mg 06/27/24 10:11 Nitroglycerin Sl Tabs 0.4 Mg Tab SUBLINGUAL Q5M PRN Chest Pain Nitroglycerin 0.5 inch 06/27/24 12:00 06/28/24 06:32 Nitroglycerin Oint 1 Inch/Gm Packet TOPICAL 0.5 inch Q6HR [facility] Administration Non-Formulary Medication 50 mg 06/28/24 09:00 Mirabegron [Myrbetriq] PO DAILY [facility] Ondansetron HCl 4 mg 06/27/24 13:21 Ondansetron 4 Mg/2 Ml Vial IVP Q8HR PRN Nausea And Vomiting Sodium Bicarbonate 650 mg 06/29/24 21:00 Sodium Bicarbonate Tab 650 Mg Tab PO MOWEFR@2100 [facility] Zinc Sulfate 220 mg 06/28/24 09:00 Zinc Sulfate 220 Mg Cap PO DAILY TAMMY Intake and Output 06/27/24 06/28/24 06/28/24 22:59 06:59 14:59 Other: Voiding Method Toilet # Voids 1 1 Weight 68.039 kg 06/27/24 08:17 06/27/24 08:17
[2024-06-28] MEDS ORDERED: ASPIRIN 325 MG TAB PO SCH (09:00)
[2024-06-28] MEDS: ASCORBIC ACID 500 MG TAB PO SCH (09:21)
[2024-06-28] MEDS: ZINC SULFATE 220 MG CAP PO SCH (09:22)
[2024-06-28] MEDS: ASPIRIN 81 MG PO SCH (09:22)
[2024-06-28] MEDS: CHOLECALCIFEROL 25 MCG (1000 IU) TABLET PO SCH (09:22)
[2024-06-28 09:37] LABS: ALT 13 U/L (8-44); AST 24 U/L (13-35); Albumin 3.6 g/dL (3.8-4.9); Alkaline Phosphatase 118 U/L (41-126); BUN/Creat Ratio 7.15 Ratio (12.00-20.00); Blood Urea Nitrogen 9.3 mg/dL (9.0-27.0); Carbon Dioxide 23.8 mmol/L (21.6-31.8); Chloride 105 mmol/L (96-109); Chol/HDL Ratio 2.93 Ratio; Glucose 131 mg/dL (70-110); Magnesium 2.3 mg/dL (1.5-2.4); Potassium 3.8 mmol/L (3.5-5.5); Sodium 141 mmol/L (135-145); Total Bilirubin 0.5 mg/dL (0.3-1.2); Total Protein 5.6 g/dL (6.2-8.2)
[2024-06-28 09:39] LABS: HCT 37.7 % (37.2-46.3); HGB 12.1 g/dL (12.0-15.0); MCH 30.4 pg (27.0-32.0); MCHC 32.1 g/dL (32.0-37.0); MCV 94.7 FL (80.0-97.0); NRBC Per 100 WBC 0 X 10*3/uL (0.00-0.01); Platelet Count 152 X 10*3/uL (140-440); RBC 3.98 X 10*6/uL (4.10-5.20); RDW 12.2 % (11.5-14.5); WBC 5.87 X 10*3/uL (4.50-10.00)
[2024-06-28 12:06] LABS: Glucose,Whole Blood 157 mg/dL (70-110)
--- NOTE | 2024-06-28 12:44 | P.PN ---
Subjective Progress Note Date: 06/28/24 Hospital course: Patient is a pleasant 78-year-old female with a past medical history of CAD with no previous stenting, HFpEF, hypertension, hyperlipidemia, mitral valve prolapse, [id number] diabetes mellitus, and chronic kidney disease. Patient reports she follows with Dr. Bustos for PCP, Dr. Barajas for cardiology and Dr. Rangel for nephrology. She presented to the hospital today secondary to reports of chest pain. Patient reports feeling baseline normal last night when she went to bed and reports awakening this morning with pain to midsternal chest accompanied by shortness of breath, nausea, and vomiting. Patient unable to describe pain to chest stating she just did not feel right. She denies having any radiation of pain and denies any other complaints including fevers, chills, diaphoresis, palpitations, cough or congestion, abdominal pain, or experiencing any numbness/tingling/weakness in her extremities. Upon arrival to our facility, patient underwent evaluation in the emergency department. Vital signs upon arrival show blood pressure 132/78, heart rate 99, respiratory rate 22, temp 98.7 F, and SpO2 of 98% on room air. EKG completed showing normal sinus rhythm at 89 bpm with a left bundle branch block upon personal review and interpretation. Left bundle branch block unchanged from previous EKG completed 03/26/2022. Chest x-ray completed negative for acute cardiopulmonary process. Labs completed and reviewed. CBC unremarkable. Coagulation profile normal findings. D-dimer was slightly elevated at 0.81 but normal with age correction. BMP showing slightly elevated renal function with BUN of 10, creatinine 1.37, and GFR of 37 with baseline creatinine around 1.0. Liver profile showing elevated alkaline phosphatase of 129 otherwise normal findings. Troponin less than 0.012. proBNP 350. Patient mated under our services with consultation to cardiology. Troponins were trended all negative at less than 0.012 x 3 draws. She was evaluated by cardiology and they are recommending dobutamine stress echo tomorrow morning. Physical exam: Patient was seen and fully evaluated at bedside this morning. She was sitting up in bed visiting with daughter at bedside. She currently reports resolution of previous reported chest pain and shortness of breath and denies any other complaints at this time. Vital signs reviewed and stable. General: Nontoxic, no distress and appears stated age. Derm: Skin warm and dry, normal coloration for ethnicity. Head: Atraumatic, normocephalic and symmetric. Eyes: EOM's intact, no lid lag, and anicteric sclera Mouth: no lip lesions, mucus membranes moist Cardiovascular: regular rate and rhythm with normal S1S2, systolic murmur, positive posterior tibial pulses bilaterally, and cap refill < 2 seconds. Lungs: Respirations even, regular, and unlabored on room air. Lungs CTA bilaterally, no rhonchi, no rales, no wheezing, and no accessory muscle usage. Abdominal: soft, nontender to palpation, no guarding, no appreciable organomegaly Ext: ROM intact. No gross muscle atrophy, scant bilateral lower extremity edema, no contractures Neuro: Speech clear, face symmetrical and CN II-XII grossly intact with no noted focal neuro deficits Psych: Alert and oriented to person, place, time, and situation. Appropriate and pleasant affect. Assessment and Plan of Care: Chest pain, rule out acute coronary event CAD HFpEF Hypertension Hyperlipidemia Mitral valve prolapse -Cardiology consulted, planning to take patient for dobutamine stress echo tomorrow morning -Telemetry monitoring -Troponins trended all negative at less than 0.012 x 3 draws. -Aspirin 81 mg daily, atorvastatin 40 mg daily, atenolol 25 mg twice daily, and isosorbide mononitrate 30 mg daily. -Lipid profile showing elevated triglycerides of 151.00 otherwise normal finding s. -Echocardiogram completed and pending report. Acute kidney injury on chronic kidney disease stage IIIa, improving -Hold benazepril and Lasix continue with gentle IV fluid hydration at 75 cc/h for an additional 24 hours and reevaluate renal function. -Urinalysis negative for infection. Bladder scan negative for retention. Type II [id number] diabetes mellitus with hyperglycemia -Hold Victoza and Januvia and place patient on glycemic protocol with NovoLog sliding scale. -Hemoglobin A1c is 7.5%. Data and imaging reviewed: Labs reviewed. Troponins trended all negative at less than 0.012 x 3 draws. Hemoglobin A1c 7.5%. Lipid profile showing elevated triglycerides of 151.00 otherwise normal findings. CBC unremarkable. BMP showing slightly elevated anion gap of 12.20 and stable renal function with BUN of 9.3 and creatinine of 1.3 with GFR of 42. Magnesium improved after replacement and is now 2.3. Liver profile unremarkable. Vital signs reviewed. Blood pressure 108/64, heart rate 75, respiratory rate 16, temp 98.4 F, and SpO2 of 98% on room air. CODE STATUS: Full Code DVT prophylaxis: Heparin Discussed with: Cardiology, patient to undergo dobutamine stress echo tomorrow morning. Anticipated discharge date: 24-[address]: Home Patient was seen independently by Nurse Practitioner. This document was prepared using [employer] dictation software. Please allow for errors in integration aide while rare they do occur. I reviewed the documentation as provided by the FRANCK above, who is the original author of this note. I agree with the documented assessment and plan, with the following changes: none Objective - Vital Signs Vital signs: Vital Signs Temp 98.4 F 06/28/24 07:00 Pulse 75 06/28/24 07:00 Resp 16 06/28/24 07:00 BP 108/64 06/28/24 07:00 Pulse Ox 98 06/28/24 07:00 FiO2 Intake & Output 06/27/24 06/28/24 06/28/24 18:59 06:59 18:59 Weight 68.039 kg 68.039 kg Other: Voiding Method Toilet # Voids 1 - Labs CBC & Chem 7: 06/28/24 04:39 06/28/24 04:39 Labs: Abnormal Lab Results - Last 24 Hours (Table) 06/27/24 06/27/24 06/27/24 Range/Units 08:17 08:17 08:17 D-Dimer 0.81 H (<0.60) mg/L FEU Creatinine 1.37 H (0.52-1.04) mg/dL Glucose 169 H (74-99) mg/dL POC Glucose (mg/dL) (70-110) mg/dL Hemoglobin A1c 7.5 H (<=6.0) % Alkaline Phosphatase 129 H (38-126) U/L 06/27/24 06/27/24 06/28/24 Range/Units 18:01 21:23 06:26 D-Dimer (<0.60) mg/L FEU Creatinine (0.52-1.04) mg/dL Glucose (74-99) mg/dL POC Glucose (mg/dL) 128 H 147 H 119 H (70-110) mg/dL Hemoglobin A1c (<=6.0) % Alkaline Phosphatase (38-126) U/L
[2024-06-28] MEDS: NON FORMULARY DRUG (Mirabegron [Myrbetriq] 50 MG Tab.Er.24h) PO SCH ×2 (17:30→20:28)
[2024-06-28 17:31] LABS: Glucose,Whole Blood 129 mg/dL (70-110)
[2024-06-28 20:10] LABS: Glucose,Whole Blood 203 mg/dL (70-110)
[2024-06-29] MEDS ORDERED: DOBUTamine DRIP for NUC MED 500 MG in DEXTROSE/WATER 1 250ML.BAG IV PRN (06:00)
[2024-06-29 06:21] LABS: Glucose,Whole Blood 116 mg/dL (70-110)
[2024-06-29 08:35] VITALS: RESP 16
[2024-06-29 08:43] LABS: HCT 35.5 % (37.2-46.3); HGB 11.6 g/dL (12.0-15.0); MCH 30.1 pg (27.0-32.0); MCHC 32.7 g/dL (32.0-37.0); Mean Platelet Volume 9.7 FL (9.5-12.2); NRBC Per 100 WBC 0 X 10*3/uL (0.00-0.01); Platelet Count 143 X 10*3/uL (140-440); RBC 3.86 X 10*6/uL (4.10-5.20); RDW 12.4 % (11.5-14.5); WBC 5.16 X 10*3/uL (4.50-10.00)
[2024-06-29 08:52] LABS: ALT 13 U/L (8-44); AST 20 U/L (13-35); Albumin 3.2 g/dL (3.8-4.9); Albumin/Globulin Ratio 1.68 Ratio (1.60-3.17); Alkaline Phosphatase 100 U/L (41-126); BUN/Creat Ratio 7.64 Ratio (12.00-20.00); Blood Urea Nitrogen 8.4 mg/dL (9.0-27.0); Calcium 8.1 mg/dL (8.7-10.3); Carbon Dioxide 23.6 mmol/L (21.6-31.8); Chloride 112 mmol/L (96-109); Globulin 1.9 g/dL (1.6-3.3); Glucose 138 mg/dL (70-110); Magnesium 2.1 mg/dL (1.5-2.4); Potassium 4.2 mmol/L (3.5-5.5); Sodium 143 mmol/L (135-145); Total Bilirubin 0.4 mg/dL (0.3-1.2); Total Protein 5.1 g/dL (6.2-8.2)
--- NOTE | 2024-06-29 09:53 | P.PN ---
Subjective Progress Note Date: 06/29/24 Consult reason: chest pain History of present illness: The patient was interviewed and examined. HPI: Patient is a pleasant 78-year-old female with a past medical history that includes dementia, diabetes, hyperlipidemia, mitral valve prolapse, vertigo, tachycardia, high cholesterol and gallstones who presents to the hospital with chest discomfort. Patient cannot remember why she came to the hospital due to her dementia. Family member in the room reports that she was reporting chest discomfort yesterday, had retching without any actual vomiting, and reports that she did not feel very good. Family brought her into the emergency department for evaluation. Patient had an EKG completed which was negative for any obvious significant changes. Troponins have been negative x 3. Due to her history and current symptoms the patient was admitted for further evaluation. This morning the patient reports that she feels okay. Again she does not remember why she was brought to the hospital. Patient does have some chest wall tenderness at the point where she reports the chest pain being. REVIEW OF LABS, ECG & MEDICAL DATA: LABS: White count 6.9, hemoglobin 14.5, platelets 170, D-dimer 0.81, sodium 139, potassium 3.8, BUN 10, creatinine 1.37, hemoglobin A1c 7.5, magnesium 1.7, troponin x 3-less than 0.012, BNP 350 EKG: Sinus mechanism IMAGING: Chest x-ray dated 06/27/2024 demonstrates no acute cardiopulmonary disease/process. VITALS: Temp 98.4, pulse 75, respirations 16, blood pressure 108/64, O2 saturation 98% on room air 06/29 Patient is scheduled for dobutamine stress echocardiogram this morning. She denies having any chest pain, shortness of breath. She seems to sleep well last night. Blood pressure 121/75, heart rate 67, pulse ox 97% on room air. Repeat blood work reveals WBC 5.1, hemoglobin 9.6. Potassium 4.2, BUN 8.4 creatinine 1.1. Telemetry is sinus rhythm. EXAMINATION: GENERAL: Well-appearing, well-nourished and in no acute distress. NECK: Supple without JVD or thyromegaly. LUNGS: Breath sounds clear to auscultation bilaterally. Respiration equal and unlabored. No wheezes, rales or rhonchi. HEART: Regular rate and rhythm without murmurs, rubs or gallops. S1 and S2 heard. EXTREMITIES: Normal range of motion, no edema. No clubbing or cyanosis. Peripheral pulses intact and strong. IMPRESSION: 1. Chest pain, reproducible on palpation, acute coronary syndrome has been ruled out 2. Dementia 3. Diabetes 4. Hyperlipidemia 5. Mitral valve prolapse PLAN: Obtain a dobutamine stress echo today Continue home medications. If stress test is unremarkable, patient is cleared for discharge home and may follow-up with Dr. Cristian Barajas in the office in 1 to 2 weeks. Nurse practitioner note has been reviewed, I agree with documented findings and plan of care. Patient was seen and examined. Objective - Vital Signs Vital signs: Vital Signs Temp 98.1 F 06/29/24 02:00 Pulse 76 06/29/24 02:00 Resp 17 06/29/24 02:00 BP 117/75 06/29/24 02:00 Pulse Ox 96 06/29/24 02:00 FiO2 Intake & Output 06/28/24 06/29/24 06/29/24 18:59 06:59 18:59 Intake Total 718 Balance 718 Intake: Oral 718 Other: Voiding Method Toilet # Voids 1 1 - Labs CBC & Chem 7: 06/29/24 05:06 06/29/24 05:06 Labs: Abnormal Lab Results - Last 24 Hours (Table) 06/27/24 06/28/24 06/28/24 Range/Units 08:17 04:39 04:39 RBC 3.98 L (4.10-5.20) X 10*6/uL Anion Gap 12.20 H (4.00-12.00) mmol/L Est GFR (CKD-EPI) 42 L (>=60) BUN/Creatinine Ratio 7.15 L (12.00-20.00) Ratio Glucose 131 H (70-110) mg/dL POC Glucose (mg/dL) (70-110) mg/dL Hemoglobin A1c 7.5 H (<=6.0) % Total Protein 5.6 L (6.2-8.2) g/dL Albumin 3.6 L (3.8-4.9) g/dL Triglycerides 151.00 H (0.00-149.00) mg/dL 06/28/24 06/28/24 06/28/24 Range/Units 12:05 17:30 20:09 RBC (4.10-5.20) X 10*6/uL Anion Gap (4.00-12.00) mmol/L Est GFR (CKD-EPI) (>=60) BUN/Creatinine Ratio (12.00-20.00) Ratio Glucose (70-110) mg/dL POC Glucose (mg/dL) 157 H 129 H 203 H (70-110) mg/dL Hemoglobin A1c (<=6.0) % Total Protein (6.2-8.2) g/dL Albumin (3.8-4.9) g/dL Triglycerides (0.00-149.00) mg/dL 06/29/24 Range/Units 06:20 RBC (4.10-5.20) X 10*6/uL Anion Gap (4.00-12.00) mmol/L Est GFR (CKD-EPI) (>=60) BUN/Creatinine Ratio (12.00-20.00) Ratio Glucose (70-110) mg/dL POC Glucose (mg/dL) 116 H (70-110) mg/dL Hemoglobin A1c (<=6.0) % Total Protein (6.2-8.2) g/dL Albumin (3.8-4.9) g/dL Triglycerides (0.00-149.00) mg/dL
--- NOTE | 2024-06-29 11:35 | CA ---
Dobutamine Stress Echocardiogram Report Rhea Joyce Age: 78 Gender: F : 1945 Exam Date: 06/29/2024 10:49 Exam Location: [facility] Ordering Physician: Almas Zayas Referring Physician: BETHANY ARANGO,, Shoe Salesman: Frank Delgadillo Technologist: Ht (in): 62 Wt (lb): 150 Procedure CPT: Indication: CP ICD-9 Codes: Rhythm: Patient History: Cardiac Medications: SEE CHART Medications in past 24 hours: Contrast: N/A Total Dose (mL): NA Stress Results Protocol: Dobutamine Peak Dose (???g/kg/min): 40 Duration (min:sec): Atropine:(mg) None Target HR: 119 Double Product: Resting HR: 72 Resting BP: 143 / 94 Peak HR: 118 Peak BP: 165 / 66 Max Predicted HR: 140 84 % Max Predicted HR Stress Summary: BP Response: Reason for Termination: Exceeded target heart rate (85% max predicted) Cardiac Symptoms: NO SYMPTOMS ECG Analysis Resting EKG: Sinus rhythm with left bundle branch block Stress EKG: Patient was given dobutamine as per protocol achieving 85% of predicted maximal heart rate without chest pain EKG changes were inconclusive Arrhythmia: Echo Analysis Base Echo Analysis: Normal left ventricular size wall motion and systolic function Low Echo Anaylsis: Atypical septal motion with normal hyperdynamic response Peak Echo Analysis: Normal hyperdynamic response Recovery Echo: Normal MEASUREMENTS (Male/Female) Normal Values CONCLUSIONS Inconclusive EKG portion of the stress test due to left bundle branch block No obvious dobutamine induced wall motion abnormalities This is a suboptimal study Dr. Ed Barajas MD (Electronically Signed) Final Date: 29 June 2024 11:34
--- NOTE | 2024-06-29 11:46 | CA ---
Transthoracic Echo Report Name: Rhea Joyce Age: 78 Gender: F : 1945 Exam Date: 06/27/2024 14:32 Exam Location: [facility] Ht (in): 62 Wt (lb): 150 Ordering Physician: Nick Felix Attending/Referring Phys: [place] Drill Operator Lisa Zheng RDCS Procedure CPT: Indications: asess structure and function of heart, CP Cardiac Hx: Technical Quality: Fair Contrast 1: Total Dose (mL): Contrast 2: Total Dose (mL): MEASUREMENTS (Male / Female) Normal Values 2D ECHO LV Diastolic Diameter PLAX 2.6 cm 4.2 - 5.9 / 3.9 - 5.3 cm LV Systolic Diameter PLAX 1.7 cm IVS Diastolic Thickness 1.5 cm 0.6 - 1.0 / 0.6 - 0.9 cm LVPW Diastolic Thickness 1.1 cm 0.6 - 1.0 / 0.6 - 0.9 cm LV Relative Wall Thickness 1.0 RV Internal Dim ED PLAX 3.4 cm LA Volume 40.9 cm??? 18 - 58 / 22 - 52 cm??? LA Volume Index 23.4 cm???/m??? 16 - 28 cm???/m??? M-MODE Aortic Root Diameter MM 2.9 cm LA Systolic Diameter MM 4.4 cm LA Ao Ratio MM 1.5 AV Cusp Separation MM 1.8 cm DOPPLER AV Peak Velocity 108.6 cm/s AV Peak Gradient 4.7 mmHg AV Mean Velocity 78.1 cm/s AV Mean Gradient 2.6 mmHg AV Velocity Time Integral 19.0 cm LVOT Peak Velocity 93.8 cm/s LVOT Peak Gradient 3.5 mmHg LVOT Velocity Time Integral 17.7 cm MV Area PHT 5.6 cm??? Mitral E Point Velocity 61.8 cm/s Mitral A Point Velocity 124.5 cm/s Mitral E to A Ratio 0.5 MV Deceleration Time 135.2 ms MV E' Velocity 3.7 cm/s Mitral E to MV E' Ratio 16.6 TR Peak Velocity 208.7 cm/s TR Peak Gradient 17.4 mmHg Right Ventricular Systolic Press 22.4 mmHg FINDINGS Left Ventricle Moderately increased left ventricular wall thickness. Left ventricular cavity size normal. Normal left ventricular systolic function with no obvious regional wall motion abnormalities. Left ventricular ejection fraction is estimated at 55-60 %. Grade 1 diastolic dysfunction. Right Ventricle Normal right ventricular size and function. Right ventricular systolic pressure within normal limits. Right Atrium Normal right atrial size. Left Atrium Normal left atrial size. Interatrial septal aneurysm. Mitral Valve Structurally normal mitral valve. Mitral valve thickened. Mild mitral annular calcification. Mild mitral regurgitation. Aortic Valve Trileaflet aortic valve. No aortic valve stenosis or regurgitation. Tricuspid Valve Structurally normal tricuspid valve. Mild tricuspid regurgitation. Pulmonic Valve Structurally normal pulmonic valve. Pericardium No pericardial effusion. Aorta Normal size aortic root and proximal ascending aorta. CONCLUSIONS Normal LV function Mild mitral regurgitation Previewed by: Dr. Ed Barajas MD (Electronically Signed) Final Date: 29 June 2024 11:45
[2024-06-29 12:13] LABS: Glucose,Whole Blood 132 mg/dL (70-110)
--- NOTE | 2024-06-29 13:51 | P.DS ---
Providers Date of admission: 06/29/24 12:20 Expected date of discharge: 06/29/24 Attending physician: Brennen Da Silva Consults: 06/27/24 10:11 Consult Physician Urgent Consulting Provider: Toribio Hess Consult Reason/Comments: cp Do you want consulting provider notified?: Yes Primary care physician: Bryan Bustos MD Hospital Course: Discharge Diagnosis: Chest pain, acute coronary event ruled out CAD HFpEF Hypertension Hyperlipidemia Mitral valve prolapse Acute kidney injury on chronic kidney disease stage IIIa, resolved. Type II [id number] diabetes mellitus with hyperglycemia.. Resume Victoza and Januvia. Hemoglobin A1c is 7.5%. Hospital course: Patient is a pleasant 78-year-old female with a past medical history of CAD with no previous stenting, HFpEF, hypertension, hyperlipidemia, mitral valve prolapse, fqy-[id number]-riohsawoa diabetes mellitus, and chronic kidney disease. Patient reports she follows with Dr. Bustos for PCP, Dr. Barajas for cardiology and Dr. Rangel for nephrology. She presented to the hospital 06/27/2024 secondary to reports of chest pain. Upon arrival to our facility, patient underwent evaluation in the emergency department. Vital signs upon arrival show blood pressure 132/78, heart rate 99, respiratory rate 22, temp 98.7 F, and SpO2 of 98% on room air. EKG completed showing normal sinus rhythm at 89 bpm with a left bundle branch block upon personal review and interpretation. Left bundle branch block unchanged from previous EKG completed 03/26/2022. Chest x-ray completed negative for acute cardiopulmonary process. Labs completed and reviewed. CBC unremarkable. Coagulation profile normal findings. D-dimer was slightly elevated at 0.81 but normal with age correction. BMP showing slightly elevated renal function with BUN of 10, creatinine 1.37, and GFR of 37 with baseline creatinine around 1.0. Liver profile showing elevated alkaline phosphatase of 129 otherwise normal findings. Troponin less than 0.012. proBNP 350. Patient mated under our services with consultation to cardiology. Troponi ns were trended all negative at less than 0.012 x 3 draws. Echocardiogram completed showing preserved EF of 55 to 60% with mild mitral regurgitation. She was evaluated by cardiology and taken for a dobutamine stress echo. Dobutamine stress echo was completed reporting inconclusive EKG portion of the stress echo test due to known left bundle branch block however no obvious dobutamine induced wall motion abnormalities were reported. Cardiology clearing patient from cardiac perspective for discharge. Patient is medically optimized and stable for discharge at this time. Patient to follow-up outpatient with PCP in 1 to 2 days and with talent acquisition consultant in 1 week. No medication changes were made during this admission. Physical exam: Vital signs reviewed and stable. General: Nontoxic, no distress and appears stated age. Derm: Skin warm and dry, normal coloration for ethnicity. Head: Atraumatic, normocephalic and symmetric. Eyes: EOM's intact, no lid lag, and anicteric sclera Mouth: no lip lesions, mucus membranes moist Cardiovascular: regular rate and rhythm with normal S1S2, systolic murmur, positive posterior tibial pulses bilaterally, and cap refill < 2 seconds. Lungs: Respirations even, regular, and unlabored on room air. Lungs CTA bilaterally, no rhonchi, no rales, no wheezing, and no accessory muscle usage. Abdominal: soft, nontender to palpation, no guarding, no appreciable organomegaly Ext: ROM intact. No gross muscle atrophy, scant bilateral lower extremity edema, no contractures Neuro: Speech clear, face symmetrical and CN II-XII grossly intact with no noted focal neuro deficits Psych: Alert and oriented to person, place, time, and situation. Appropriate and pleasant affect. A total of 36 minutes of time were spent preparing this complex discharge summary. Pt was discharged on 06/29/2024 at 1:42 PM. Patient was seen independently by Nurse Practitioner. This document was prepared using [employer] dictation software. Please allow for errors in toilet attendant while rare they do occur. Nick Felix NP rendered care for this patient independently, reviewed the findings and plan as documented in the note above. I did not physically speak with or examine the patient on this date. Patient Condition at Discharge: Stable Plan - Discharge Summary Discharge Rx Participant: No New Discharge Prescriptions: Continue atenoloL [Tenormin] 25 mg PO DAILY Atorvastatin Calcium [Lipitor] 20 mg PO HS Zinc 50 mg PO DAILY Furosemide [Lasix] 20 mg PO DAILY Liraglutide [Victoza 3-Kenji] 1.8 mg SQ DAILY Benazepril HCl 10 mg PO DAILY Sodium Bicarbonate Tab 650 mg PO MOWEFR@2100 Mirabegron [Myrbetriq] 50 mg PO DAILY sitaGLIPtin [Januvia] 100 mg PO DAILY Ascorbic Acid [Vitamin C] 2,000 mg PO DAILY Aspirin EC [Ecotrin] 325 mg PO HS Cholecalciferol [Vitamin D3 (25 Mcg = 1000 Iu)] 25 mcg PO DAILY Isosorbide Mononitrate ER [Imdur] 30 mg PO DAILY #30 tab Calcium Carbonate [Calcium] 600 mg PO DAILY Discharge Medication List Atorvastatin Calcium [Lipitor] 20 mg PO HS 10/21/15 [History] Benazepril HCl 10 mg PO DAILY 10/21/15 [History] Furosemide [Lasix] 20 mg PO DAILY 10/21/15 [History] Liraglutide [Victoza 3-Kenji] 1.8 mg SQ DAILY 10/21/15 [History] Zinc 50 mg PO DAILY 10/21/15 [History] atenoloL [Tenormin] 25 mg PO DAILY 10/21/15 [History] Ascorbic Acid [Vitamin C] 2,000 mg PO DAILY 03/25/22 [History] Aspirin EC [Ecotrin] 325 mg PO HS 03/25/22 [History] Cholecalciferol [Vitamin D3 (25 Mcg = 1000 Iu)] 25 mcg PO DAILY 03/25/22 [History] Mirabegron [Myrbetriq] 50 mg PO DAILY 03/25/22 [History] Sodium Bicarbonate Tab 650 mg PO MOWEFR@2100 03/25/22 [History] Isosorbide Mononitrate ER [Imdur] 30 mg PO DAILY #30 tab 03/27/22 [Rx] Calcium Carbonate [Calcium] 600 mg PO DAILY 06/27/24 [History] sitaGLIPtin [Januvia] 100 mg PO DAILY 06/27/24 [History] Follow up Appointment(s)/Referral(s): Terrance Bowden MD [REFERRING] - 1-2 days Ed Barajas MD [STAFF PHYSICIAN] - 1 Week Patient Instructions/Handouts: Chest Pain (DC) Activity/Diet/Wound Care/Special Instructions: Activity: As tolerated. Take breaks as needed. Diet: Heart healthy and carb consistent diet. Avoid salts, or foods with hidden salts such as canned or boxed foods and frozen dinners. Extra salt makes your heart work harder and traps the fluid in your body for longer. Special Instructions: Take all of your medications as directed and remember to keep all of your doctor's appointments and follow-up as needed. Thank you for allowing us to participate in your care, it was truly a pleasure having you for our patient!!! Discharge Disposition: HOME SELF-CARE
[2024-06-29 14:44] VITALS: BP 129/77; PULSE 64; TEMP 97.6
[2024-06-29] MEDS ORDERED: SODIUM BICARBONATE TAB 650 MG TAB PO SCH (21:00)
== END 2024-06-29 17:04 | disposition home or self-care (01) | DRG 303 ==
LOC: SUPCPDRO 07:58 → EC 07:58 → 6NMEDSUR 10:12 → OBSVTOIN 06-29 12:20
PROVIDERS: ADMIT Student in an Organized Health Care Education/Training Program; ATTEND Student in an Organized Health Care Education/Training Program
DX: I25.119 Atherosclerotic heart disease of native coronary artery with unspecified angina pectoris (principal); N17.9 Acute kidney failure, unspecified; I50.30 Unspecified diastolic (congestive) heart failure; I13.0 Hypertensive heart and chronic kidney disease with heart failure and stage 1 through stage 4 chronic kidney disease, or unspecified chronic kidney disease; E11.65 Type 2 diabetes mellitus with hyperglycemia; E11.22 Type 2 diabetes mellitus with diabetic chronic kidney disease; N18.31 Chronic kidney disease, stage 3a; F03.90 Unspecified dementia, unspecified severity, without behavioral disturbance, psychotic disturbance, mood disturbance, and anxiety; I34.1 Nonrheumatic mitral (valve) prolapse; E78.00 Pure hypercholesterolemia, unspecified; I44.7 Left bundle-branch block, unspecified; R74.8 Abnormal levels of other serum enzymes; Z79.82 Long term (current) use of aspirin; Z79.84 Long term (current) use of oral hypoglycemic drugs; Z79.899 Other long term (current) drug therapy; Z79.85 Long-term (current) use of injectable non-insulin antidiabetic drugs; Z87.891 Personal history of nicotine dependence
CPT/HCPCS: 36415; 71046; 80053; 80061; 81003; 83036; 83735; 83880; 84484; 85025; 85027; 85379; 85610; 85730; 93005; 93306; 93351; 94760; 96361; 96365; 99285

== ENCOUNTER → 2024-09-04 | Outpatient (CLI) | payer MEDICARE ==
[2024-09-04 15:47] LABS: BUN/Creat Ratio 13.93 Ratio (12.00-20.00); Blood Urea Nitrogen 19.5 mg/dL (9.0-27.0); Calcium 9.6 mg/dL (8.7-10.3); Carbon Dioxide 27.8 mmol/L (21.6-31.8); Chloride 103 mmol/L (96-109); Glucose 156 mg/dL (70-110); Potassium 4.4 mmol/L (3.5-5.5); Sodium 142 mmol/L (135-145)
== END | disposition home or self-care (01) ==
LOC: LABWHC1 10:03
PROVIDERS: ATTEND Family Medicine
DX: I10 Essential (primary) hypertension (principal); E11.9 Type 2 diabetes mellitus without complications
CPT/HCPCS: 36415; 80048; 83036

== ENCOUNTER 2024-12-03 21:54 | Emergency (ER) | payer MEDICARE ==
[2024-12-03 22:00] VITALS: PULSE 72
--- NOTE | 2024-12-03 22:18 | ED ---
Upper Extremity HPI - General Chief Complaint: Extremity Injury, Upper Stated Complaint: Fall, R Shoulder Injury Time Seen by Provider: 12/03/24 22:03 Source: patient, family, RN notes reviewed Mode of arrival: ambulatory Limitations: no limitations - History of Present Illness Initial Comments: This is an 79-year-old female with history including DM, hyperlipidemia and dementia presenting with daughter for right shoulder pain (02/09) x 7 days. Daughter states patient's pain following a fall in a parking lot due to loss of balance. Patient states pain is radiating to her right neck and having pain with movement of shoulder. Denies use of blood thinners, just 325 mg ASA daily, which she has taken. Denies striking head, loss consciousness, headache, neck pain, visual changes, dizziness, nausea/vomiting, other injuries, dyspnea. MD Complaint: Injury to:: right, shoulder Onset/Timin -: days(s) Other Injuries: none Place: outdoors Severity scale (1-10): 6 Improves With: immobilization Worsens With: movement of extremity Context: fall Associated Symptoms: denies other symptoms - Related Data Home Medications Medication Instructions Recorded Confirmed Atorvastatin Calcium [Lipitor] 20 mg PO HS 10/21/15 06/27/24 Benazepril HCl 10 mg PO DAILY 10/21/15 06/27/24 Furosemide [Lasix] 20 mg PO DAILY 10/21/15 06/27/24 Liraglutide [Victoza 3-Kenji] 1.8 mg SQ DAILY 10/21/15 06/27/24 Zinc 50 mg PO DAILY 10/21/15 06/27/24 atenoloL [Tenormin] 25 mg PO DAILY 10/21/15 06/27/24 Ascorbic Acid [Vitamin C] 2,000 mg PO DAILY 03/25/22 06/27/24 Aspirin EC [Ecotrin] 325 mg PO HS 03/25/22 06/27/24 Cholecalciferol [Vitamin D3 (25 25 mcg PO DAILY 03/25/22 06/27/24 Mcg = 1000 Iu)] Mirabegron [Myrbetriq] 50 mg PO DAILY 03/25/22 06/27/24 Sodium Bicarbonate Tab 650 mg PO MOWEFR@2100 03/25/22 06/27/24 Calcium Carbonate [Calcium] 600 mg PO DAILY 10/26/24 10/26/24 sitaGLIPtin [Januvia] 100 mg PO DAILY 06/27/24 06/27/24 Previous Rx's Medication Instructions Recorded Isosorbide Mononitrate ER [Imdur] 30 mg PO DAILY #30 tab 03/27/22 Allergies Allergy/AdvReac Type Severity Reaction Status Date / Time morphine Allergy Rash/Hives Verified 12/03/24 22:00 Penicillins Allergy Rash/Hives Verified 12/03/24 22:00 Sulfa (Sulfonamide Allergy Rash/Hives Verified 12/03/24 22:00 Antibiotics) clindamycin AdvReac Diarrhea Verified 12/03/24 22:00 Review of Systems ROS Statement: Those systems with pertinent positive or pertinent negative responses have been documented in the HPI. ROS Other: All systems not noted in ROS Statement are negative. Past Medical History Past Medical History: Dementia, Diabetes Mellitus, Hyperlipidemia, Mitral Valve Prolapse (MVP) Additional Past Medical History / Comment(s): vertigo, tachycardia, MVP, high cholesterol, cataracts, gall stones History of Any Multi-Drug Resistant Organisms: None Reported Past Surgical History: Appendectomy, Hysterectomy Additional Past Surgical History / Comment(s): r breast biopsy, colonoscopy, cataracts, D&C, Past Anesthesia/Blood Transfusion Reactions: No Reported Reaction Additional Past Anesthesia/Blood Transfusion Reaction / Comment(s): Patient has never received blood. Past Psychological History: No Psychological Hx Reported Smoking Status: Former smoker Past Alcohol Use History: None Reported Past Drug Use History: None Reported - Past Family History Family Family Medical History: No Reported History General Exam Limitations: no limitations General appearance: alert, in no apparent distress Head exam: Present: atraumatic, normocephalic, normal inspection Eye exam: Present: normal appearance, PERRL, EOMI. Absent: scleral icterus, conjunctival injection, periorbital swelling ENT exam: Present: normal exam, mucous membranes moist Neck exam: Present: normal inspection. Absent: tenderness, meningismus, lymphadenopathy Respiratory exam: Present: normal lung sounds bilaterally, chest wall tenderness (Positive right superior parasternal mass with associated tenderness. No obvious tenting, crepitus, deformity.). Absent: respiratory distress, wheezes, rales, rhonchi, stridor, accessory muscle use, decreased breath sounds, prolonged expiratory Cardiovascular Exam: Present: regular rate, normal rhythm, normal heart sounds. Absent: systolic murmur, diastolic murmur, rubs, gallop, clicks GI/Abdominal exam: Present: soft, normal bowel sounds. Absent: distended, tenderness, guarding, rebound, rigid Extremities exam: Present: full ROM, tenderness (Positive generalized right shoulder/humerus tenderness without obvious crepitus, deformity, LROM. ), normal capillary refill, other (Negative right shoulder apprehension, Muhammad, empty can, belly press, liftoff. Patient demonstrating FROM with strength 5/5. Distal neurovascular and motor function intact. Radial pulse +2.). Absent: pedal edema, joint swelling, calf tenderness Back exam: Present: normal inspection Neurological exam: Present: alert, oriented X3, CN II-XII intact Psychiatric exam: Present: normal affect, normal mood Skin exam: Present: warm, dry, intact, normal color. Absent: rash Course Vital Signs 12/03/24 21:56 Temperature 97.8 F Pulse Rate 72 Respiratory 20 Rate Blood Pressure 179/80 O2 Sat by Pulse 100 Oximetry Medical Decision Making - Medical Decision Making Was pt. sent in by a medical professional or institution (, PA, [employer] SUPERVISOR, urgent care, hospital, or [facility]...) When possible be specific @ -[No] Did you speak to anyone other than the patient for history (EMS, parent, family, police, friend...)? What history was obtained from this source @ -Daughter provided majority of HPI Did you review nursing and triage notes (agree or disagree)? Why? @ -[I reviewed and agree with nursing and triage notes] Were old charts reviewed (outside hosp., previous admission, EMS record, old EKG, old radiological studies, urgent care reports/EKG's, [facility] records)? Report findings @ -[No old charts were reviewed] Differential Diagnosis (chest pain, altered mental status, abdominal pain women, abdominal pain men, vaginal bleeding, weakness, fever, dyspnea, syncope, headache, dizziness, GI bleed, back pain, seizure, CVA, palpatations, mental health, musculoskeletal)? @ -Differential Musculoskeletal Muscular strain, contusion, ligament sprain, fracture, arthritis, septic arthr itis, bursitis, cellulitis, muscle spasm, nerve compression, DVT, arterial occlusion, herpes zoster, electrolyte abnormality, tumor.... This is not meant to be in all inclusive list EKG interpreted by me (3pts min.). @ -Sinus rhythm with LAD. No ST deviation or T wave inversion. Ventricular rate 71 bpm, MARISEL 169 ms, QRS 131 ms, QTc 430 ms. X-rays interpreted by me (1pt min.). @ -Right shoulder/clavicle x-ray shows no acute osseous pathology, fracture, dislocation with moderate right AC joint arthropathy. CXR shows no acute cardiopulmonary process. CT interpreted by me (1pt min.). @ -[None done] U/S interpreted by me (1pt. min.). @ -[None done] What testing was considered but not performed or refused? (CT, X-rays, U/S, labs)? Why? @ -[None] What meds were considered but not given or refused? Why? @ -[None] Did you discuss the management of the patient with other professionals (professionals i.e. , PA, [employer] SUPERVISOR, lab, RT, psych nurse, clinical social work therapist, supply chain systems manager, teacher, chief talent officer, supportive employment case manager)? Give summary @ -[No] Was smoking cessation discussed for >3mins.? @ -[No] Was critical care preformed (if so, how long)? @ -[No] Were there social determinants of health that impacted care today? How? (Homelessness, low income, unemployed, alcoholism, drug addiction, tr ansportation, low edu. Level, literacy, decrease access to med. care, senior care, rehab)? @ -[No] Was there de-escalation of care discussed even if they declined (Discuss DNR or withdrawal of care, Hospice)? DNR status @ -[No] What co-morbidities impacted this encounter? (DM, HTN, Smoking, COPD, CAD, Canc er, CVA, ARF, Chemo, Hep., AIDS, mental health diagnosis, sleep apnea, morbid obesity)? @ -[None] Was patient admitted / discharged? Hospital course, mention meds given and route, prescriptions, significant lab abnormalities, going to OR and other pertinent info. @ -[hospital course] Undiagnosed new problem with uncertain prognosis? @ -[No] Drug Therapy requiring intensive monitoring for toxicity (Heparin, Nitro, Insulin, Cardizem)? @ -[No] Were any procedures done? @ -[No] Diagnosis/symptom? @ -[default] Acute, or Chronic, or Acute on Chronic? @ -Acute Uncomplicated (without systemic symptoms) or Complicated (systemic symptoms)? @ -Uncomplicated Side effects of treatment? @ -[No] Exacerbation, Progression, or Severe Exacerbation? @ -[No] Poses a threat to life or bodily function? How? (Chest pain, [place], [place], pneumonia, PE, COPD, DKA, ARF, appy, cholecystitis, CVA, Diverticulitis, Homicidal, Suicidal, threat to staff... and all critical care pts) @ -[No] - Lab Data Result diagrams: 12/03/24 23:18 12/03/24 23:18 Lab Results 12/03/24 12/03/24 12/03/24 Range/Units 23:18 23:18 23:18 WBC 6.3 (3.8-10.6) k/uL RBC 4.40 (3.80-5.40) m/uL Hgb 13.2 (11.4-16.0) gm/dL Hct 40.4 (34.0-46.0) % MCV 91.9 (80.0-100.0) fL MCH 30.0 (25.0-35.0) pg MCHC 32.7 (31.0-37.0) g/dL RDW 12.9 (11.5-15.5) % Plt Count 180 (150-450) k/uL MPV 7.3 Neutrophils % 39 % Lymphocytes % 47 % Monocytes % 6 % Eosinophils % 4 % Basophils % 1 % Neutrophils # 2.5 (1.3-7.7) k/uL Lymphocytes # 3.0 (1.0-4.8) k/uL Monocytes # 0.4 (0-1.0) k/uL Eosinophils # 0.3 (0-0.7) k/uL Basophils # 0.0 (0-0.2) k/uL PT 12.1 (10.0-12.5) sec INR 1.1 (<1.2) APTT 24.2 (22.0-30.0) sec Sodium 137 (137-145) mmol/L Potassium 4.0 (3.5-5.1) mmol/L Chloride 102 (98-107) mmol/L Carbon Dioxide 29 (22-30) mmol/L Anion Gap 6 mmol/L BUN 16 (7-17) mg/dL Creatinine 1.16 H (0.52-1.04) mg/dL Est GFR (CKD-EPI)AfAm 51 (>60 ml/min/1.73 sqM) Est GFR (CKD-EPI)NonAf 44 (>60 ml/min/1.73 sqM) Glucose 105 H (74-99) mg/dL Calcium 9.4 (8.4-10.2) mg/dL Total Bilirubin 0.8 (0.2-1.3) mg/dL AST 30 (14-36) U/L ALT 17 (4-34) U/L Alkaline Phosphatase 107 (38-126) U/L Troponin I (0.000-0.034) ng/mL Total Protein 6.2 L (6.3-8.2) g/dL Albumin 3.6 (3.5-5.0) g/dL 12/03/24 Range/Units 23:18 WBC (3.8-10.6) k/uL RBC (3.80-5.40) m/uL Hgb (11.4-16.0) gm/dL Hct (34.0-46.0) % MCV (80.0-100.0) fL MCH (25.0-35.0) pg MCHC (31.0-37.0) g/dL RDW (11.5-15.5) % Plt Count (150-450) k/uL MPV Neutrophils % % Lymphocytes % % Monocytes % % Eosinophils % % Basophils % % Neutrophils # (1.3-7.7) k/uL Lymphocytes # (1.0-4.8) k/uL Monocytes # (0-1.0) k/uL Eosinophils # (0-0.7) k/uL Basophils # (0-0.2) k/uL PT (10.0-12.5) sec INR (<1.2) APTT (22.0-30.0) sec Sodium (137-145) mmol/L Potassium (3.5-5.1) mmol/L Chloride (98-107) mmol/L Carbon Dioxide (22-30) mmol/L Anion Gap mmol/L BUN (7-17) mg/dL Creatinine (0.52-1.04) mg/dL Est GFR (CKD-EPI)AfAm (>60 ml/min/1.73 sqM) Est GFR (CKD-EPI)NonAf (>60 ml/min/1.73 sqM) Glucose (74-99) mg/dL Calcium (8.4-10.2) mg/dL Total Bilirubin (0.2-1.3) mg/dL AST (14-36) U/L ALT (4-34) U/L Alkaline Phosphatase (38-126) U/L Troponin I <0.012 (0.000-0.034) ng/mL Total Protein (6.3-8.2) g/dL Albumin (3.5-5.0) g/dL Disposition Clinical Impression: Contusion of right shoulder Disposition: HOME SELF-CARE Condition: Good Instructions (If sedation given, give patient instructions): Shoulder Pain (ED) Additional Instructions: Follow-up with PCP for ongoing management of pain. Is patient prescribed a controlled substance at d/c from ED?: No Referrals: Bryan Bustos MD [Primary Care Provider] - 1-2 days Time of Disposition: 00:14
--- NOTE | 2024-12-03 22:48 | XR ---
EXAMINATION TYPE: XR shoulder complete RT, XR clavicle RT DATE OF EXAM: 12/03/2024 10:42 PM INDICATION: Patient age:Female; 79 years old; Reason for study: Fall, right clavicular pain; pain COMPARISON: Chest radiograph 06/27/2024, right shoulder radiograph 10/21/2015 TECHNIQUE: The right shoulder was examined in AP, internally rotated and scapular Y projections. . The right clavicle was examined in 2 projections. FINDINGS: No evidence of acute osseous pathology, joint dislocation, or soft tissue swelling. Right AC joint ar thropathy with pannus formation and superior surface spurring. The remaining portions of the visualiz ed chest are unremarkable. IMPRESSION: 1. No acute osseous pathology. 2. Moderate right AC joint arthropathy. [facility], , 12/03/2024 10:45 PM
[2024-12-03 23:40] LABS: Basophils % (A) 1 %; Eosinophils # (A) 0.3 k/uL (0-0.7); Eosinophils % (A) 4 %; HCT 40.4 % (34.0-46.0); HGB 13.2 gm/dL (11.4-16.0); Lymphocytes % (A) 47 %; MCHC 32.7 g/dL (31.0-37.0); MCV 91.9 fL (80.0-100.0); Mean Platelet Volume 7.3; Monocytes # (A) 0.4 k/uL (0-1.0); Monocytes % (A) 6 %; Neutrophils # (A) 2.5 k/uL (1.3-7.7); Neutrophils % (A) 39 %; Platelet Count 180 k/uL (150-450); RDW 12.9 % (11.5-15.5); WBC 6.3 k/uL (3.8-10.6)
[2024-12-03 23:55] LABS: INR 1.1 (<1.2); Partial Thromboplastin Time 24.2 sec (22.0-30.0); Prothrombin Time 12.1 sec (10.0-12.5)
--- NOTE | 2024-12-03 23:56 | XR ---
EXAMINATION TYPE: XR chest 2V DATE OF EXAM: 12/03/2024 11:44 PM COMPARISON: Chest radiographs from 06/27/2024, right shoulder and clavicle radiographs 12/03/2024 TECHNIQUE: XR chest 2V Frontal and lateral views of the chest. CLINICAL INDICATION:Female, 79 years old with history of Right shoulder pain; FINDINGS: Lungs/Pleura: There is no evidence of pleural effusion, focal consolidation, or pneumothorax. Pulmonary vascularity: Unremarkable. Heart/mediastinum: Cardiomediastinal silhouette is unremarkable. Musculoskeletal: Multiple level degenerative disc disease changes seen throughout the spine. No acute osseous abnormality. IMPRESSION: No acute cardiopulmonary disease/process. [facility], , 12/03/2024 11:53 PM
[2024-12-03 23:59] LABS: ALT 17 U/L (4-34); AST 30 U/L (14-36); African American GFR (CKD) 51 (>60 ml/min/1.73 sqM); Albumin 3.6 g/dL (3.5-5.0); Alkaline Phosphatase 107 U/L (38-126); Anion Gap 6 mmol/L; Blood Urea Nitrogen 16 mg/dL (7-17); Calcium 9.4 mg/dL (8.4-10.2); Carbon Dioxide 29 mmol/L (22-30); Chloride 102 mmol/L (98-107); Glucose 105 mg/dL (74-99); Non-African American GFR(CKD) 44 (>60 ml/min/1.73 sqM); Sodium 137 mmol/L (137-145); Total Bilirubin 0.8 mg/dL (0.2-1.3); Total Protein 6.2 g/dL (6.3-8.2)
[2024-12-04 00:38] VITALS: BP 137/79; RESP 18; TEMP 97.9
== END 2024-12-04 00:37 | disposition home or self-care (01) ==
LOC: EC 21:54
DX: S40.011A Contusion of right shoulder, initial encounter (principal); E78.5 Hyperlipidemia, unspecified; E11.9 Type 2 diabetes mellitus without complications; F03.90 Unspecified dementia, unspecified severity, without behavioral disturbance, psychotic disturbance, mood disturbance, and anxiety; Z87.891 Personal history of nicotine dependence; Z88.0 Allergy status to penicillin; Z88.1 Allergy status to other antibiotic agents; Z88.2 Allergy status to sulfonamides; Z88.5 Allergy status to narcotic agent; W19.XXXA Unspecified fall, initial encounter; Y92.481 Parking lot as the place of occurrence of the external cause
CPT/HCPCS: 36415; 71046; 80053; 84484; 85025; 85610; 85730; 99284

== ENCOUNTER → 2024-12-28 | Outpatient (CLI) | payer MEDICARE ==
[2024-12-28 12:14] LABS: HCT 41.2 % (37.2-46.3); HGB 13.8 g/dL (12.0-15.0); MCH 31.4 pg (27.0-32.0); MCHC 33.5 g/dL (32.0-37.0); MCV 93.6 fL (80.0-97.0); Mean Platelet Volume 10.1 fL (9.5-12.2); Platelet Count 157 10*3/uL (140-440); RDW 12.5 % (11.5-14.5); WBC 7.02 10*3/uL (4.50-10.00)
[2024-12-28 17:25] LABS: % Iron Saturation 31.23 (12.00-45.00); BUN/Creat Ratio 12.08 Ratio (12.00-20.00); Blood Urea Nitrogen 14.5 mg/dL (9.0-27.0); Carbon Dioxide 20.5 mmol/L (21.6-31.8); Chloride 104 mmol/L (96-109); Chol/HDL Ratio 2.33 Ratio; Ferritin 72.2 ng/mL (10.0-291.0); Glucose 125 mg/dL (70-110); Iron 84 UG/DL (50-170); LDL Cholesterol,Calculated 56.8 mg/dL (0.0-131.0); Magnesium 1.8 mg/dL (1.5-2.4); Phosphorus 3.3 mg/dL (2.4-5.1); Potassium 4.2 mmol/L (3.5-5.5); Sodium 142 mmol/L (135-145); Total Iron Binding Capacity 269 UG/DL (228-460); Uric Acid 5.8 mg/dL (2.9-7.7)
[2024-12-29 10:01] LABS: Free Kappa Lt Chain Qnt, Serum 2.37 mg/dL (0.33-1.94); Free Lambda Lt Chain Qnt, Seru 2.09 mg/dL (0.57-2.63)
== END | disposition home or self-care (01) ==
LOC: LABWHC1 10:12
DX: E55.9 Vitamin D deficiency, unspecified (principal); E11.22 Type 2 diabetes mellitus with diabetic chronic kidney disease; N18.2 Chronic kidney disease, stage 2 (mild); D63.1 Anemia in chronic kidney disease; N25.81 Secondary hyperparathyroidism of renal origin; M10.9 Gout, unspecified; N39.0 Urinary tract infection, site not specified
CPT/HCPCS: 36415; 80048; 80061; 82306; 82728; 83036; 83540; 83550; 83735; 83883; 83970; 84100; 84550; 85027; 86334